=== PATIENT | female | born 1940 | race African-American/Black ===

== ENCOUNTER → 2017-01-18 | Outpatient (CLI) | payer BC ==
[2015-03-29 14:57] VITALS: BP 130/70
[~2017-01-18] MED LIST: ASPI325T8 PO; CARV12.52 PO; CELE400C PO; CRESTOR20 MG PO; ESTR1TAB15 PO; FERR-26 PO; LOSA50TA6 PO; NIFE60TA10 PO; OMEP40CA5 PO; SIMV20TA3 PO; TRIA1TAB5 PO; VALS160T3 PO
[2017-01-18 08:35] LABS: BILIRUBIN,URINE NEGATIVE (NEG); GLUCOSE,URINE NEGATIVE (NEG); NITRITE,URINE NEGATIVE (NEG); PH,URINE 5.5; PROTEIN,URINE 100 mg/dL (NEG-TRACE); UROBILINOGEN,URINE 0.2 mg/dL (0.2 mg/dL)
[2017-01-18 08:55] LABS: BACTERIA,URINE FEW /HPF (0-FEW); RBC,URINE RARE /HPF (0-2); SQUAMOUS EPITHELIAL CELL,UR FEW /LPF
[2017-01-18 09:05] LABS: PROTHROMBIN TIME PATIENT 12.4 SEC (11.7-14.0)
--- NOTE | 2017-01-18 12:59 | EKG ---
[address] [place] [address] Test Date: 2017-01-18 Test Time: 12:05:15 Pat Name: SINDI HEWITT Department: Room: Gender: F Collection Officer: ELEONORA : 1940 Requested By: LAINA KEENAN Order Number: [id number] Reading MD: Manuel Casas Measurements Intervals Superior Rate: 58 P: 36 DC: 192 QRS: 1 QRSD: 82 T: 45 QT: 418 QTc: 414 Interpretive Statements SINUS RHYTHM QRS(T) CONTOUR ABNORMALITY CONSISTENT WITH INFERIOR INFARCT PROBABLY OLD ABNORMAL ECG RI6.01 Compared to ECG 12/09/2011 12:13:40 Myocardial infarct finding now present Atrial abnormality no longer present Inferior Q waves no longer present Q waves no longer present Electronically Signed On 01-18-2017 17:44:51 CDT by Manuel Casas
--- NOTE | 2017-01-18 13:13 | RAD ---
Chest radiograph 2 views 01/18/2017 Indication: Preoperative evaluation for joint replacement. Hypertension. Comparison: 03/04/2015 chest radiograph Findings: Cardiac and mediastinal silhouettes are within normal limits. No pleural effusion, pneumothorax or focal consolidation. Right upper quadrant cholecystectomy clips. Impression: No acute cardiopulmonary abnormality.
== END | disposition home or self-care (01) ==
LOC: SURGPAT 12:45
PROVIDERS: ATTEND Orthopaedic Surgery
DX: Z01.818 Encounter for other preprocedural examination (principal); M17.11 Unilateral primary osteoarthritis, right knee; I10 Essential (primary) hypertension; I21.3 ST elevation (STEMI) myocardial infarction of unspecified site; Z96.651 Presence of right artificial knee joint; Z90.49 Acquired absence of other specified parts of digestive tract
CPT/HCPCS: 36415; 71020; 81001; 85610; 85651; 85730; 87086; 87641; 93005

== ENCOUNTER 2017-02-09 05:34 | Inpatient (IN) | payer BC ==
--- NOTE | 2017-02-08 13:38 | PDOC1 ---
History and Physical Date of Admission Date of Admission DATE: 02/09/17 Identification/Chief Complaint Chief Complaint right knee pain Problems: Source Source: Chart review History of Present Illness History of Present Illness The patient is a 76 year old female who presents today with right knee pain. The pain is located primarily medially and is worsened by walking and standing for long periods of time. She had a left total knee arthroplasty on 03/26/15, which is doing well. Past Medical History Cardiovascular: HTN Past Surgical History Past Surgical History: Total knee replacement (left 03/26/15) Family History Family History: Cancer, Diabetes, Heart Disease (Rheumatoid arthritis ) Social History Smoke: No ALCOHOL: none Drugs: None Current Medications Current Medications Active Scripts Active Reported Ferrous Sulfate 325 Mg Tablet 325 Mg PO Carvedilol 12.5 Mg Tablet 1 Tab PO BID Diovan (Valsartan) 160 Mg Tablet 160 Mg PO DAILY Aspirin 325 Mg Tablet 325 Mg PO DAILY Omeprazole 40 Mg Capsule.dr 40 Mg PO DAILY Triamterene-Hctz 75-50 Mg Tab (Triamterene/Hydrochlorothiazid) 1 Each Tablet 1 Tab PO DAILY Nifedipine Er (Nifedipine) 60 Mg Tablet.er 90 Mg PO DAILY Allergies Allergies: Coded Allergies: No Known Drug Allergies (Unverified , 03/29/15) Physical Exam General: Alert, Oriented X3, Cooperative, No acute distress HEENT: Atraumatic, EOMI Lungs: Normal air movement Heart: RRR Abdomen: Soft Extremities: No clubbing, No cyanosis, Normal pulses, Other (LEFT KNEE: shows normal alignment, no masses and no effusion. No tenderness to palpation. Range of motion is 0-120 degrees, with typical total knee crepitus but no pain at the extremes of motion. The knee is stable to varus and valgus stress without subluxation or laxity. Muscle strength is normal (5/5) for quadriceps and hamstrings, and muscle tone is normal. The extensor mechanism is intact. The skin shows a well-healed midline scar from total knee arthroplasty. No drainage lesions or ulcers. Light touch sensation is decreased along the lateral calf beyond area of usual numbness after arthroplasty incision. Few varicose veins. Actinic keratosis. Dorsalis pedis pulse is intact and capillary refill is normalRIGHT KNEE: mildly antalgic gait. There is valgus alignment. No masses. Trace effusion. Tenderness on the medial and lateral joint lines. Range of motion is 0-105 degrees. There is crepitus with range of motion, and pain at the extremes of motion. The knee is stable to varus and valgus stress without subluxation or laxity. Muscle strength is normal (5/5) for quadriceps and hamstrings, and muscle tone is normal. The skin is normal with no scars, rashes , lesions or ulcers. Light touch sensation is intact. Few varicose veins. Actinic keratosis. Dorsalis pedis pulse is intact and capillary refill is normal. ) Skin: No rashes, No breakdown, No significant lesion Neuro: Normal speech, Sensation intact Psych/Mental Status: Mental status NL, Mood NL Images Images IMAGING REPORT Joint survey, hips knees and ankles Clinical information: Preoperative for total knee arthroplasty Comparison: None. Findings Bones: The angle between the right hip-ankle mechanical axis and the femoral shaft is 5. The angle between the left hip-ankle mechanical axis and the femoral shaft is 5 . The mechanical axis crosses lateral to the center of the right knee indicating valgus alignment. The mechanical axis crosses in the center of the left knee indicating proper mechanical alignment. Joints: There is narrowing of the right knee joint laterally. The left knee joint has total knee arthroplasty in good position. The hips and ankles show minimal degenerative changes. Soft tissue: Normal. Impression: Valgus alignment of the right knee. Left total knee arthroplasty in good alignment. The difference between the mechanical axis and femoral shaft anatomic axis is 5 bilaterally. Dictated and Signed Using Voice Recognition Software Charles Masters MD VTE Prophylaxis Ordered VTE Prophylaxis Devices: Yes VTE Pharmacological Prophylaxi: Yes Assessment/Plan Assessment/Plan Primary osteoarthritis of right knee The right knee impairs her gait on a daily basis. She has been using a brace for the right knee. She has tried nonoperative treatment without success and would like to proceed with total knee arthroplasty. She denied metal allergies. She would like to wait until January due to family reunion in the summer. Risks and benefits were discussed and her questions regarding surgery were answered. TIERA CHANEY Feb 08, 2017 13:38
[~2017-02-09] VITALS: Ht 172.7 cm; Wt 87.1 kg
[2017-02-09] VITALS (9 sets, daily range): BP systolic 133–173; BP diastolic 65–82
[2017-02-09] MEDS ORDERED: CELECOXIB 200 MG CAPSULE. PO PRN (06:00)
[2017-02-09] MEDS ORDERED: HYDROcodone/APAP 7.5/325MG 1 TAB TABLET PO PRN (06:00)
[2017-02-09] MEDS ORDERED: MORPHINE SULFATE 5 MG, KETOROLAC TROMETHAMINE 30 MG, ROPIVacaine 0.5% PF 60 ML, EPINEPH... INT ART ONE ×5 (06:00)
[2017-02-09] MEDS ORDERED: TRANEXAMIC ACID 1,000 MG in IV NS 50ML -- 1ST BAG INJ ONE (06:00)
[2017-02-09] MEDS ORDERED: CELE200C PO (06:15)
[2017-02-09] MEDS ORDERED: ONDANSETRON PF 4 MG/2 ML VIAL. IV PRN ×2 (07:00)
[2017-02-09] MEDS ORDERED: MORPHINE SULFATE 2 MG/ML DISP.SYRIN. IV PRN ×2 (07:00)
[2017-02-09] MEDS ORDERED: HYDROmorphone 2 MG/ML VIAL IV PRN ×2 (07:00)
[2017-02-09] MEDS ORDERED: IV RINGERS,LACTATED 1000ML 1,000 ML IV SCH ×2 (07:00)
[2017-02-09] MEDS ORDERED: LIDOCAINE 1% 1 ML SYRINGE. ID PRN ×2 (07:00)
[2017-02-09] MEDS ORDERED: PROCHLORPERAZINE 10 MG/2 ML VIAL. IV PRN ×3 (07:00→09:30)
[2017-02-09] MEDS ORDERED: fentaNYL PF VIAL 100 MCG/2 ML VIAL IV PRN ×5 (07:00→09:30)
[2017-02-09] MEDS ORDERED: LIDOCAINE 2% PF Vial for OR 5 ML VIAL. ONE (07:03)
[2017-02-09] MEDS ORDERED: PROPOFOL 20 ML IV ONE (07:03)
[2017-02-09] MEDS ORDERED: FAMOTIDINE 20 MG/2 ML VIAL ONE (07:03)
[2017-02-09] MEDS ORDERED: DEXAMETHASONE SOD PHOS 20 MG/5 ML VIAL. ONE (07:03)
[2017-02-09] MEDS ORDERED: ONDANSETRON PF 4 MG/2 ML VIAL. ONE (07:03)
[2017-02-09] MEDS ORDERED: ROCURONIUM 100 MG/10 ML VIAL. ONE ×2 (07:05→07:06)
[2017-02-09] MEDS ORDERED: MIDAZOLAM HCL/PF 2 MG/2 ML VIAL. ONE (07:05)
[2017-02-09] MEDS ORDERED: fentaNYL PF VIAL 100 MCG/2 ML VIAL ONE ×3 (07:05→08:45)
[2017-02-09] MEDS ORDERED: TOBRAMYCIN POWDER 1.2 GM VIAL. ONE (07:30)
[2017-02-09] MEDS ORDERED: VANCOMYCIN 1 GM VIAL. ONE (07:30)
[2017-02-09] MEDS ORDERED: GLYCOPYRROLATE 1 MG/5 ML VIAL. ONE (08:26)
[2017-02-09] MEDS ORDERED: NEOSTIGMINE METHYLSULFATE 5 MG/5 ML SYRINGE. ONE (08:26)
[2017-02-09] MEDS ORDERED: SEVOFLURANE 61 TO 120 MINUTES. IH ONE (09:04)
--- NOTE | 2017-02-09 09:22 | PDOC4 ---
Operative Note Operative Note Date of Procedure: February 09, 2017 Pre-Op Diagnosis: Osteoarthritis right knee Post-Op Diagnosis: Osteoarthritis right knee Procedure: right total knee arthroplasty Surgeon: Laina Masters MD Flumer: Maribeth Lux PA-C Anesthesia: General EBL: 100 mL Specimens Obtained: right knee bone and soft tissue Complications: none Implant Company: [employer] Drains: Hemovac plus pain catheter Tourniquet time: 50 Minutes Tourniquet Pressure: 300 mm Hg Indications for Procedure: Arthritis pain unrelieved by nonoperative management. Findings: Severe osteoarthritis with bone on bone contact in all three compartments, but most severe laterally Implants used: Size 3 right bicruciate stabilized Journey II BCS cobalt chrome femoral component, size 4 right Journey nonporous tibial baseplate, size 3-4 9 mm right Journey II BCS XLPE articular insert, 32 mm oval Yanet II resurfacing patellar component Procedure in Detail: The patient was identified in the preoperative holding area, and the correct right lower extremity was marked by me. The patient was taken to the operating room where the patient was anesthetized by the Department of Anesthesia. Preoperative antibiotics were given intravenously. Tranexamic acid 1 g was given intravenously for intraoperative hemostasis. A "time-out" procedure was performed. The patient was positioned supine on the operative table with a tourniquet on the upper right thigh. The right lower limb was thoroughly prepped and draped in sterile fashion. An impervious stockinet and adhesive drape were used such that the skin was entirely covered. An Hyatt leg aponte was used. The operating team wore personal exhaust-ventilated hoods. The tourniquet was inflated to 300 mm Hg. A midline skin incision was made with a scalpel using the patella and tibial tubercle as landmarks. Electrocautery was used for hemostasis. My animal assistant used rake retractors. A medial parapatellar arthrotomy incision was used with extension into the distal quadriceps tendon. The patella was retracted laterally and Hohmann retractors were now used by my animal assistant. Excess synovium, the menisci, and the cruciate ligaments were resected sharply. The patella was assessed and excess synovium and osteophytes around the patellar articulation were removed. The patella was measured with a caliper, cut freehand with a saw using caliper measurements, sized, and then drilled for an oval three-pegged patella component. Periarticular injection was used in the suprapatellar pouch and distal quadriceps muscle. Whitesides's line was assessed on the femur. An intra-medullary 5 degree cutting guide was pinned to the femur, and a distal femoral cut was made with an oscillating saw. An additional 2 mm resection was used due to the deep femoral sulcus, and deficient condyle.My animal assistant held Hohmann retractors and an [place] retractor to protect the medial and lateral collateral ligaments, the patellar tendon, the skin and the other soft tissues. An anterior referencing guide was applied with external rotation of 3 to match Jade s line. A 5-in-1 Journey II cutting guide was then applied and pinned to the femur. The posterior, anterior, and all chamfer cuts were made with the oscillating saw. An extramedullary guide was pinned to the tibia and rotational alignment and the planned resection thickness assessed. An external alignment destiny was used to verify the planned cut in the varus-valgus plane and regarding posterior slope referencing the tibial tubercle, the tibial shaft, the ankle joint, and the second metatarsal. The upper tibia was cut made with an oscillating saw. My animal assistant held Hohmann retractors and a posterior cruciate ligament retractor to protect the medial and lateral collateral ligaments, the patellar tendon, the skin, the peroneal nerve and the other soft tissues. The upper tibia was sized with a trial baseplate. The posterior compartment was cleared of osteophytes and loose bodies, and posterior capsule released. Dahlia-articular injection was used in the posterior compartment. The box cut for a posterior stabilized component was made. A preliminary reduction was performed with a trial femur, trial tibial baseplate and trial polyethylene. Soft-tissue balancing was now performed, and extension and rotation of the alignments was checked using a guide destiny in the tibial trial and a guide pin in the femur. No additional releases were required. The stability was assessed using different thicknesses of tibial articular surface to find satisfactory stability and good range of motion. The rotation of the tibial component was marked on the upper tibia. Final trial reduction was now performed verifying patella tracking and tibiofemoral stability and alignment. The tibia preparation was completed with a drill, saw, and fin punch at the previously noted rotation. The final implants were verified and opened. Outer gloves were changed by the operating team. The bone cuts were washed thoroughly with the [place] InterPulse device and dried. Two packages of Palacos bone cement were mixed in powdered form with 1 gm of Vancomycin and 1.2 g tobramycin, then vacuum-mixed with the monomer, and placed into a cement gun. The cut surfaces of the bone were thoroughly dried with Claros-tip suction and with laparotomy sponges for cement interdigitation. The final components were cemented into place. The knee was kept at full extension while the cement hardened, and excess cement was removed. No tranexamic acid was given at this point. A final periarticular injection was used for pain relief. The tourniquet was released, and electrocautery was used for hemostasis. A final check of [id number] and stability was made, and the polyethylene implant final size was chosen. The polyethylene implant was secured to the tibial baseplate, and the knee was reduced a final time. Thorough irrigation was used. Hemovac and pain catheter were used.The arthrotomy was closed with interrupted [id number] #1 PDS suture. The arthrotomy incision was then run with #1 STRATAFIX Symmetric PDS Plus Knotless suture. The subcutaneous tissues were closed with #2-0 Vicryl by my animal assistant. The skin was approximated with flaco by my animal assistant. A Prevena dressing was applied. Needle and sponge counts were correct. There were no apparent complications. LAINA MASTERS MD Feb 09, 2017 09:22
[2017-02-09] MEDS ORDERED: MORPHINE SULFATE 10 MG/ML VIAL. IV PRN (09:30)
[2017-02-09] MEDS ORDERED: ZOLPIDEM 5 MG TABLET. PO PRN (09:30)
[2017-02-09] MEDS ORDERED: ACETAMINOPHEN 325 MG TABLET. PO PRN (09:30)
[2017-02-09] MEDS ORDERED: CALCIUM CARBONATE 500 MG TAB.CHEW PO PRN (09:30)
[2017-02-09] MEDS ORDERED: oxyCODONE/APAP 5/325 1 TAB TABLET PO PRN (09:30)
[2017-02-09] MEDS ORDERED: MORPHINE SULFATE 4 MG/ML DISP.SYRIN. IV PRN ×3 (09:30)
[2017-02-09] MEDS ORDERED: diphenhydrAMINE 50 MG/ML VIAL IV PRN (09:30)
[2017-02-09] MEDS ORDERED: DEXTROSE 50% 25 GM / 50ML DISP.SYRIN. IV PRN (09:30)
[2017-02-09] MEDS ORDERED: traMADol 50 MG TABLET PO PRN ×2 (09:30)
[2017-02-09] MEDS ORDERED: PROCHLORPERAZINE 5 MG TABLET. PO PRN (09:30)
[2017-02-09] MEDS ORDERED: METOCLOPRAMIDE HCL 10 MG/2 ML VIAL. IV PRN (09:30)
[2017-02-09] MEDS ORDERED: 0.9 % SODIUM CHLORIDE 10 ML DISP.SYRIN. IV PRN (09:30)
[2017-02-09] MEDS: fentaNYL PF VIAL 100 MCG/2 ML VIAL IV PRN ×2 (09:39→10:03)
--- NOTE | 2017-02-09 10:19 | RAD ---
Exam performed: 2 views of the right knee. Indication: Right knee arthroplasty Date of Service: 02/09/17. No priors Two views right knee findings: There are postsurgical changes of total right knee arthroplasty with prosthesis in satisfactory position. There is expected subcutaneous edema and emphysema. There is a drainage catheter projecting anterosuperiorly. Impression: 1. Postsurgical changes of total right knee arthroplasty.
[2017-02-09] MEDS: FERROUS SULFATE 325 MG TABLET. PO SCH (17:32)
[2017-02-09] MEDS: CARVEDILOL 12.5 MG TABLET. PO SCH (17:33)
[2017-02-09] MEDS: IV DEXTROSE 5 %-0.45 % NACL 1,000 ML IV SCH ×2 (17:34→21:08)
[2017-02-09] MEDS: ASPIRIN ENTERIC COATED 325 MG TABLET.DR. PO SCH (21:08)
[2017-02-09] MEDS: CELECOXIB 200 MG CAPSULE. PO SCH (21:08)
--- NOTE | 2017-02-10 01:32 | ACF ---
Admission Forms Criteria PAIN MANAGEMENT GR Clinical Indications for Admission to Inpatient Care (Place 'X' for any and all applicable criteria): Hospital admission is needed for appropriate care of the patient because of 1 or more of the following are present (1)(2)(3)(4)(5): [X]I. Severe pain requiring acute inpatient management as indicated by 1 or more of the following (2)(5)(10): [X]a) Continuous or frequent (eg, every 2 to 4 hours) parenteral analgesics required [A] [ ]b) Necessity (ie, alternative approaches not effective) for analgesic regimen that can only be performed or initiated in inpatient setting [ ]II. Pain causing debilitation to the point of inability to function or be supported at any other level of care [ ]III. Severe side effects from pain medications as indicated by ANY ONE of the following (12)(13)(14)(15): [ ]a) Uncontrollable seizures [ ]b) Cardiac arrhythmias of immediate concern [ ]c) Dehydration that is severe or persistent [ ]d) Vomiting that is severe or persistent [ ]e) Altered mental status that is severe or persistent [ ]f) Obstipation with inadequate GI function to maintain nutrition The original [employer] content created by [employer] has been revised. The portions of the content which have been revised are identified through the use of italic text or in bold, and [employer] has neither reviewed nor approved the modified material. All other unmodified content is copyright [employer]. Please see references footnoted in the original [employer] edition 2016 Admission Criteria Met?: Yes ALLY HERRERA Feb 10, 2017 01:32
[2017-02-10 02:37] VITALS: BP 154/69
[2017-02-10] MEDS: IV DEXTROSE 5 %-0.45 % NACL 1,000 ML IV SCH (05:20)
[2017-02-10] MEDS ORDERED: MAGNESIUM HYDROXIDE 2,400 MG/30 ML ORAL.SUSP. PO PRN (06:00)
[2017-02-10 06:30] VITALS: BP 141/63
[2017-02-10] MEDS: PANTOPRAZOLE 40 MG TABLET.DR. PO SCH (06:36)
[2017-02-10 08:07] LABS: HEMATOCRIT 33.5 % (36.0-47.0); HEMOGLOBIN 11.1 g/dL (12.0-15.5)
[2017-02-10] MEDS: CELECOXIB 200 MG CAPSULE. PO SCH ×2 (08:41→21:03)
[2017-02-10] MEDS: ASPIRIN ENTERIC COATED 325 MG TABLET.DR. PO SCH ×2 (08:41→21:03)
[2017-02-10] MEDS: SENNOSIDES/DOCUSATE 8.6/50MG TABLET. PO SCH (08:41)
[2017-02-10] MEDS: FERROUS SULFATE 325 MG TABLET. PO SCH ×2 (08:41→17:11)
[2017-02-10] MEDS: MULTIVITAMIN with MINERAL TABLET. PO SCH (08:41)
[2017-02-10] MEDS: CARVEDILOL 12.5 MG TABLET. PO SCH ×2 (08:42→17:12)
[2017-02-10] MEDS: TRIAMTERENE/HCTZ 75/50MG TABLET. PO SCH (08:42)
[2017-02-10] MEDS: oxyCODONE/APAP 7.5/325 1 TAB TABLET PO PRN ×3 (08:45→16:08)
[2017-02-10] MEDS: LOSARTAN POTASSIUM 50 MG TABLET. PO SCH (08:47)
--- NOTE | 2017-02-10 10:06 | PDOC ---
PROGRESS NOTES Subjective Subjective No complaints. Pain is controlled. Objective Vital Signs Vital Signs Date Time Temp Pulse Resp B/P (MAP) Pulse Ox O2 Delivery O2 Flow Rate FiO2 02/10/17 08:47 71 141/63 02/10/17 06:30 98.4 18 96 Room Air 98.4 02/09/17 14:20 2.0 Physical Exam Postop dressing dry and intact. Hemovac and pain catheter in place. Good dorsiflexion and plantarflexion of the foot with no evidence of neurovascular injury. Calves are soft and nontender with negative Homans sign. Peripheral pulses and light touch sensation intact. Labs Laboratory Tests Test 02/10/17 07:50 Hemoglobin 11.1 g/dL (12.0-15.5) Hematocrit 33.5 % (36.0-47.0) Mean Corpuscular Hemoglobin Concent 33 g/dL (31-37) Laboratory Tests Test 02/10/17 07:50 Hemoglobin 11.1 g/dL (12.0-15.5) Hematocrit 33.5 % (36.0-47.0) Mean Corpuscular Hemoglobin Concent 33 g/dL (31-37) Imaging Postoperative x-rays reviewed by me, showing satisfactory total knee replacement , with no apparent complications. Assessment Assessment POD #1 right TKA Problems: Plan Plan of Care Continue POC including DVT prophylaxis and physical therapy. TIERA CHANEY Feb 10, 2017 10:06
[2017-02-10] MEDS ORDERED: BISACODYL 10 MG SUPP.RECT. PR PRN (16:00)
[2017-02-10 18:06] VITALS: BP 142/73
[2017-02-10] MEDS: HYDROcodone/APAP 10/325 1 TAB TABLET PO PRN (21:04)
[2017-02-11] MEDS: HYDROcodone/APAP 10/325 1 TAB TABLET PO PRN ×2 (03:29→07:50)
[2017-02-11 04:40] LABS: HEMATOCRIT 30.1 % (36.0-47.0); HEMOGLOBIN 10.1 g/dL (12.0-15.5)
[2017-02-11 05:30] VITALS: BP 138/61
[2017-02-11] MEDS: PANTOPRAZOLE 40 MG TABLET.DR. PO SCH (07:50)
[2017-02-11] MEDS: SENNOSIDES/DOCUSATE 8.6/50MG TABLET. PO SCH (07:52)
[2017-02-11] MEDS: MULTIVITAMIN with MINERAL TABLET. PO SCH (07:52)
[2017-02-11] MEDS: FERROUS SULFATE 325 MG TABLET. PO SCH ×2 (07:52→15:52)
[2017-02-11] MEDS: CELECOXIB 200 MG CAPSULE. PO SCH ×2 (07:52→20:33)
[2017-02-11] MEDS: CARVEDILOL 12.5 MG TABLET. PO SCH ×2 (07:52→15:52)
[2017-02-11 07:54] VITALS: BP 129/68
[2017-02-11] MEDS: LOSARTAN POTASSIUM 50 MG TABLET. PO SCH (09:00)
[2017-02-11] MEDS: TRIAMTERENE/HCTZ 75/50MG TABLET. PO SCH (09:00)
[2017-02-11 11:36] VITALS: BP 126/63
[2017-02-11] MEDS: ASPIRIN ENTERIC COATED 325 MG TABLET.DR. PO SCH ×2 (11:36→11:51)
[2017-02-11] MEDS: HYDROcodone/APAP 7.5/325MG 1 TAB TABLET PO PRN ×2 (12:12→20:33)
--- NOTE | 2017-02-11 12:52 | PDOC ---
PROGRESS NOTES Subjective Subjective Pain controlled. No major complaints. Objective Vital Signs Vital Signs Date Time Temp Pulse Resp B/P (MAP) Pulse Ox O2 Delivery O2 Flow Rate FiO2 02/11/17 12:12 Room Air 02/11/17 11:36 87 16 126/63 (84) 02/11/17 05:30 98.5 92 98.5 02/09/17 14:20 2.0 Physical Exam Postop dressing and pain catheter have been removed. Spotty bloody drainage only. Calf soft and nontender. Good AROM of ankle. Minimal erythema/warmth. Possible valgus clinical alignment, although patient doesn't notice at this time. Labs Laboratory Tests Test 02/10/17 07:50 02/11/17 04:00 Hemoglobin 11.1 g/dL (12.0-15.5) 10.1 g/dL (12.0-15.5) Hematocrit 33.5 % (36.0-47.0) 30.1 % (36.0-47.0) Mean Corpuscular Hemoglobin Concent 33 g/dL (31-37) 34 g/dL (31-37) Laboratory Tests Test 02/11/17 04:00 Hemoglobin 10.1 g/dL (12.0-15.5) Hematocrit 30.1 % (36.0-47.0) Mean Corpuscular Hemoglobin Concent 34 g/dL (31-37) Imaging Postoperative x-rays and report reviewed by me and show possible valgus alignment 11 degrees rather than 5 degrees of the femoral component, and no other apparent complications. Assessment Assessment POD #2 TKA Problems: Plan Plan of Care I will discuss the x-ray findings with her. Doubtful that revision at this time would be indicated. Will follow clinically. Continue POC. Discharge planning for tomorrow. Aspirin 325 mg po BID and mobilization for DVT prophylaxis. LAINA KEENAN MD Feb 11, 2017 12:52
--- NOTE | 2017-02-11 16:42 | PATHOLOGY ---
PATHOLOGY REPORT * * * * * * * * FINAL DIAGNOSIS: Segments of bone and soft tissue, right total knee arthroplasty: - Advanced degenerative arthritis. (JPM:; 02/11/2017) REPORT ELECTRONICALLY SIGNED BY: Raul Cody M.D. DATE/TIME: 02/11/2017 16:41 * * * * * * * * GROSS PATHOLOGY: Received in formalin labeled "Eri May right knee tissue," are multiple segments of bone, including tibial plateau, measuring 13.8 x 11.2 x 2.8 cm in aggregate dimensions admixed with soft tissue; meniscus is present. The specimen shows focal eburnation of the articular surfaces. [employer] sections of bone and soft tissue are submitted in cassette A1, following decalcification. (DAC; 02/10/2017) INITIAL CPT CODE(S): A; 86674, 30388 Professional services [place] [address] Technical services performed by [facility] at [address] [place] [address], [place] [address]. SPECIMEN(S) RECEIVED: A.Right knee tissue CLINICAL HISTORY: Right knee OA PATIENT: ERI MAY /AGE: 1 1940 (Age: 76) PATIENT #: [id number] ALT CASE #: SPECIMEN COLLECTION DATE: 02/09/2017 SPECIMEN RECEIVED DATE: 02/09/2017 [facility] - [address] [place] [address] - PHONE: [phone] * * * END OF REPORT * * *
[2017-02-11 18:20] VITALS: BP 166/71
[2017-02-12 03:00] VITALS: BP 145/68
[2017-02-12] MEDS: HYDROcodone/APAP 7.5/325MG 1 TAB TABLET PO PRN ×3 (04:57→15:08)
[2017-02-12 05:04] LABS: HEMATOCRIT 26.6 % (36.0-47.0); HEMOGLOBIN 9.1 g/dL (12.0-15.5)
[2017-02-12 06:00] VITALS: BP 136/66
[2017-02-12] MEDS: PANTOPRAZOLE 40 MG TABLET.DR. PO SCH (06:37)
[2017-02-12] MEDS: SENNOSIDES/DOCUSATE 8.6/50MG TABLET. PO SCH (08:11)
[2017-02-12] MEDS: ASPIRIN ENTERIC COATED 325 MG TABLET.DR. PO SCH (08:12)
[2017-02-12] MEDS: FERROUS SULFATE 325 MG TABLET. PO SCH (08:12)
[2017-02-12] MEDS: CELECOXIB 200 MG CAPSULE. PO SCH (08:12)
[2017-02-12] MEDS: MULTIVITAMIN with MINERAL TABLET. PO SCH (08:12)
[2017-02-12] MEDS: CARVEDILOL 12.5 MG TABLET. PO SCH (08:13)
[2017-02-12] MEDS ORDERED: FERR-26 PO (10:13)
[2017-02-12] MEDS ORDERED: CELE200C PO (10:13)
[2017-02-12] MEDS ORDERED: ASPI325T11 PO (10:13)
[2017-02-12 12:46] VITALS: BP 161/69
[2017-02-12 14:30] VITALS: BP 168/72
== END 2017-02-12 15:30 | disposition home or self-care (01) | DRG 470 ==
LOC: OPSVCIP 05:34 → 4 SOUTHEST 10:33
PROVIDERS: ADMIT Orthopaedic Surgery; ATTEND Orthopaedic Surgery
PROC: 3E0U33Z Introduction of Anti-inflammatory into Joints, Percutaneous Approach (ICD-10-PCS; 2017-02-09)
PROC: 0SRC0J9 Replacement of Right Knee Joint with Synthetic Substitute, Cemented, Open Approach (ICD-10-PCS; principal; 2017-02-09 07:10)
DX: M17.11 Unilateral primary osteoarthritis, right knee (principal); I10 Essential (primary) hypertension; Z83.3 Family history of diabetes mellitus; Z96.652 Presence of left artificial knee joint; Z80.9 Family history of malignant neoplasm, unspecified; Z82.61 Family history of arthritis; Z82.49 Family history of ischemic heart disease and other diseases of the circulatory system
CPT/HCPCS: 36415; 73560; 85014; 85018; 86850; 86900; 86901; 88305; 88311; J0171; J0690; J0780; J1100; J1885; J2250; J2270; J2405; J2704; J2710; J2795; J3010; J3260; J3370; J3490; J7030; J7120; Q0164; S0028; 97116; 97150; 97530; C1769; J2001

== ENCOUNTER → 2017-02-23 | Outpatient (CLI) | payer BC ==
[2017-02-12 14:30] VITALS: BP 168/72
[~2017-02-23] MED LIST changes: +ASPI325T11 PO; +CELE200C PO
== END | disposition home or self-care (01) ==
LOC: PMGWOUND 08:55
PROVIDERS: ATTEND Emergency Medicine Undersea and Hyperbaric Medicine
DX: S80.221D Blister (nonthermal), right knee, subsequent encounter (principal); I10 Essential (primary) hypertension; M17.11 Unilateral primary osteoarthritis, right knee; I21.3 ST elevation (STEMI) myocardial infarction of unspecified site; Z90.710 Acquired absence of both cervix and uterus; X58.XXXD Exposure to other specified factors, subsequent encounter
CPT/HCPCS: 97597

== ENCOUNTER → 2017-03-02 | Outpatient (CLI) | payer BC ==
[2017-02-12 14:30] VITALS: BP 168/72
== END | disposition home or self-care (01) ==
LOC: PMGWOUND 08:45
PROVIDERS: ATTEND Emergency Medicine Undersea and Hyperbaric Medicine
DX: T81.89XD Other complications of procedures, not elsewhere classified, subsequent encounter (principal); I10 Essential (primary) hypertension; Z90.710 Acquired absence of both cervix and uterus; Y83.8 Other surgical procedures as the cause of abnormal reaction of the patient, or of later complication, without mention of misadventure at the time of the procedure
CPT/HCPCS: 99214

== ENCOUNTER → 2017-03-09 | Outpatient (CLI) | payer BC ==
[2017-02-12 14:30] VITALS: BP 168/72
== END | disposition home or self-care (01) ==
LOC: PMGWOUND 08:44
PROVIDERS: ATTEND Emergency Medicine Undersea and Hyperbaric Medicine
DX: T81.89XD Other complications of procedures, not elsewhere classified, subsequent encounter (principal); I10 Essential (primary) hypertension; I21.3 ST elevation (STEMI) myocardial infarction of unspecified site; M17.11 Unilateral primary osteoarthritis, right knee; Z90.49 Acquired absence of other specified parts of digestive tract; Z90.710 Acquired absence of both cervix and uterus; Y83.8 Other surgical procedures as the cause of abnormal reaction of the patient, or of later complication, without mention of misadventure at the time of the procedure
CPT/HCPCS: 99212

== ENCOUNTER → 2017-03-16 | Outpatient (CLI) | payer BC | END | disposition home or self-care (01) | LOC: PMGWOUND 08:17 | PROVIDERS: ATTEND Emergency Medicine Undersea and Hyperbaric Medicine | DX: T81.89XD Other complications of procedures, not elsewhere classified, subsequent encounter (principal); I10 Essential (primary) hypertension; M19.90 Unspecified osteoarthritis, unspecified site; Z90.710 Acquired absence of both cervix and uterus; Y83.8 Other surgical procedures as the cause of abnormal reaction of the patient, or of later complication, without mention of misadventure at the time of the procedure | CPT/HCPCS: 99214 ==

== ENCOUNTER → 2017-03-23 | Outpatient (CLI) | payer BC ==
[~2017-03-23] MED LIST changes: -NIFE60TA10 PO; +NIFE60TA14 PO
== END | disposition home or self-care (01) ==
LOC: PMGWOUND 08:15
PROVIDERS: ATTEND Emergency Medicine Undersea and Hyperbaric Medicine
DX: T81.89XD Other complications of procedures, not elsewhere classified, subsequent encounter (principal); I10 Essential (primary) hypertension; M17.11 Unilateral primary osteoarthritis, right knee; I21.3 ST elevation (STEMI) myocardial infarction of unspecified site; Z90.49 Acquired absence of other specified parts of digestive tract; Z90.710 Acquired absence of both cervix and uterus; Y83.8 Other surgical procedures as the cause of abnormal reaction of the patient, or of later complication, without mention of misadventure at the time of the procedure
CPT/HCPCS: 97597

== ENCOUNTER → 2017-04-06 | Outpatient (CLI) | payer BC ==
[~2017-04-06] MED LIST changes: +NIFE60TA10 PO; -NIFE60TA14 PO
== END | disposition home or self-care (01) ==
LOC: PMGWOUND 08:18
PROVIDERS: ATTEND Emergency Medicine Undersea and Hyperbaric Medicine
DX: S80.221D Blister (nonthermal), right knee, subsequent encounter (principal); I10 Essential (primary) hypertension; M19.90 Unspecified osteoarthritis, unspecified site; Z90.710 Acquired absence of both cervix and uterus; X58.XXXD Exposure to other specified factors, subsequent encounter
CPT/HCPCS: 97597

== ENCOUNTER → 2017-04-20 | Outpatient (CLI) | payer BC | END | disposition home or self-care (01) | LOC: PMGWOUND 08:25 | PROVIDERS: ATTEND Emergency Medicine Undersea and Hyperbaric Medicine | DX: T81.89XD Other complications of procedures, not elsewhere classified, subsequent encounter (principal); I10 Essential (primary) hypertension; I21.3 ST elevation (STEMI) myocardial infarction of unspecified site; M17.11 Unilateral primary osteoarthritis, right knee; Z90.49 Acquired absence of other specified parts of digestive tract; Z90.710 Acquired absence of both cervix and uterus; Y83.8 Other surgical procedures as the cause of abnormal reaction of the patient, or of later complication, without mention of misadventure at the time of the procedure | CPT/HCPCS: 97597 ==

== ENCOUNTER → 2017-05-04 | Outpatient (CLI) | payer BC ==
[~2017-05-04] MED LIST changes: -NIFE60TA10 PO; +NIFE60TA14 PO
== END | disposition home or self-care (01) ==
LOC: PMGWOUND 08:27
PROVIDERS: ATTEND Emergency Medicine Undersea and Hyperbaric Medicine
DX: S80.221D Blister (nonthermal), right knee, subsequent encounter (principal); I10 Essential (primary) hypertension; M19.90 Unspecified osteoarthritis, unspecified site; Z90.710 Acquired absence of both cervix and uterus; X58.XXXD Exposure to other specified factors, subsequent encounter
CPT/HCPCS: 99214

== ENCOUNTER → 2017-05-18 | Outpatient (CLI) | payer BC | END | disposition home or self-care (01) | LOC: PMGWOUND 08:26 | PROVIDERS: ATTEND Emergency Medicine Undersea and Hyperbaric Medicine | DX: T81.89XD Other complications of procedures, not elsewhere classified, subsequent encounter (principal); I10 Essential (primary) hypertension; M17.11 Unilateral primary osteoarthritis, right knee; I21.3 ST elevation (STEMI) myocardial infarction of unspecified site; Z90.49 Acquired absence of other specified parts of digestive tract; Z90.710 Acquired absence of both cervix and uterus; Y83.8 Other surgical procedures as the cause of abnormal reaction of the patient, or of later complication, without mention of misadventure at the time of the procedure | CPT/HCPCS: 99213 ==

== ENCOUNTER 2018-04-17 14:29 | Inpatient (IN) | payer OTHER ==
[~2018-04-17] VITALS: Ht 167.6 cm; Wt 82.2 kg
[~2018-04-17 14:29] MED LIST changes: -FERR-26 PO; +FERR325T14 PO; -LOSA50TA6 PO; +LOSA50TA7 PO
--- NOTE | 2018-04-17 14:44 | PHYS DOC ---
Past Medical History Past Medical History: Anemia, GERD, Hypertension, Renal Disease Alcohol Use: None Drug Use: None Adult General Chief Complaint Chief Complaint: CHEST PAIN HPI HPI 77-year-old female presents to ER via POV for complaints of ongoing dull right- sided chest/rt upper extremity pain which started yesterday. Patient reports yesterday afternoon she developed discomfort in her right arm that radiated into her right chest. Patient reports pain subsides at rest however with any movement or sitting up patient reports pain starts back up. She reports she took 81mg aspirin this morning. Patient denies any shortness of air, abdominal pain, nausea or vomiting, or dizziness. Patient reports she has had regular appetite denying any nausea or vomiting. Patient reports bowel movements have been regular denying any dark tarry or bloody stools. She denies any swelling in extremities. Patient denies injury to right upper extremity or recent falls. She denies any recent travel. Patient denies being a smoker. Review of Systems Review of Systems Constitutional: Denies fever or chills and denies fatigue or generalized weakness Eyes: Denies change in visual acuity, redness, or eye pain [] HENT: Denies nasal congestion or sore throat [] Respiratory: Denies cough or shortness of breath [] Cardiovascular: Rt side dull CP-as radiation into right arm GI: Denies abdominal pain, nausea, vomiting, bloody stools or diarrhea [] : Denies dysuria or hematuria [] Musculoskeletal: Denies back/neck pain or joint pain [] Integument: Denies rash, swelling or skin lesions [] Neurologic: Denies headache, focal weakness or sensory changes. Denies dizziness or lightheadedness All other systems were reviewed and found to be within normal limits, except as documented in this note. Current Medications Current Medications Current Medications Medications (Trade) Dose Ordered Sig/[place] Start Time Stop Time Status Last Admin Dose Admin Aspirin (Children'S Aspirin) 243 mg 1X ONCE 04/17/18 14:45 04/17/18 14:46 DC 04/17/18 14:51 243 MG Nitroglycerin (Nitrostat) 0.4 mg PRN Q5MIN PRN 04/17/18 15:30 04/17/18 15:49 0.4 MG Allergies Allergies Allergies Coded Allergies Type Severity Reaction Last Updated Verified No Known Drug Allergies 02/09/17 No Physical Exam Physical Exam Constitutional: Well developed, well nourished, no acute distress, non-toxic appearance. [] HENT: Normocephalic, atraumatic, bilateral ears normal, oropharynx moist, no oral exudates, nose normal. [] Eyes: Pupils equal, conjunctiva normal, no discharge. [] Neck: Normal range of motion, no tenderness, supple, no stridor. [] Cardiovascular:Heart rate regular rhythm, no murmur [] Lungs & Thorax: Bilateral breath sounds clear to auscultation. Resp. equal/ nonlabored Abdomen: Bowel sounds normal, soft, no tenderness, no masses, no pulsatile masses. [] Skin: Warm, dry, no erythema, no rash. [] Back: No tenderness, no CVA tenderness. [] Extremities: No tenderness, no cyanosis, no clubbing, ROM intact, no edema. [] Neurologic: Alert and oriented X 3, normal motor function, normal sensory function, no focal deficits noted. [] Psychologic: Affect normal, judgement normal, mood normal. [] Current Patient Data Vital Signs Vital Signs Date Time Temp Pulse Resp B/P (MAP) Pulse Ox O2 Delivery O2 Flow Rate FiO2 04/17/18 15:08 80 188/83 (118) 97 Room Air 04/17/18 14:31 98.6 20 98.6 Lab Values Laboratory Tests Test 04/17/18 14:39 White Blood Count 4.6 x10^3/uL (4.0-11.0) Red Blood Count 3.60 x10^6/uL (3.50-5.40) Hemoglobin 10.6 g/dL (12.0-15.5) L Hematocrit 31.0 % (36.0-47.0) L Mean Corpuscular Volume 86 fL (79-100) Mean Corpuscular Hemoglobin 29 pg (25-35) Mean Corpuscular Hemoglobin Concent 34 g/dL (31-37) Red Cell Distribution Width 14.2 % (11.5-14.5) Platelet Count 222 x10^3/uL (140-400) Neutrophils (%) (Auto) 55 % (31-73) Lymphocytes (%) (Auto) 31 % (24-48) Monocytes (%) (Auto) 7 % (0-9) Eosinophils (%) (Auto) 5 % (0-3) H Basophils (%) (Auto) 2 % (0-3) Neutrophils # (Auto) 2.5 x10^3uL (1.8-7.7) Lymphocytes # (Auto) 1.4 x10^3/uL (1.0-4.8) Monocytes # (Auto) 0.3 x10^3/uL (0.0-1.1) Eosinophils # (Auto) 0.2 x10^3/uL (0.0-0.7) Basophils # (Auto) 0.1 x10^3/uL (0.0-0.2) Sodium Level 139 mmol/L (136-145) Potassium Level 3.8 mmol/L (3.5-5.1) Chloride Level 104 mmol/L (98-107) Carbon Dioxide Level 23 mmol/L (21-32) Anion Gap 12 (6-14) Blood Urea Nitrogen 46 mg/dL (7-20) H Creatinine 3.8 mg/dL (0.6-1.0) H Estimated GFR (Cockcroft-Gault) 14.0 BUN/Creatinine Ratio 12 (6-20) Glucose Level 137 mg/dL (70-99) H Calcium Level 8.9 mg/dL (8.5-10.1) Magnesium Level 2.1 mg/dL (1.8-2.4) Total Bilirubin 0.3 mg/dL (0.2-1.0) Aspartate Amino Transferase (AST) 23 U/L (15-37) Alanine Aminotransferase (ALT) 26 U/L (14-59) Alkaline Phosphatase 146 U/L (46-116) H Troponin I Quantitative 0.040 ng/mL (0.000-0.055) Total Protein 7.0 g/dL (6.4-8.2) Albumin 3.3 g/dL (3.4-5.0) L Albumin/Globulin Ratio 0.9 (1.0-1.7) L Triglycerides Level 77 mg/dL (0-150) Cholesterol Level 199 mg/dL (0-200) LDL Cholesterol, Calculated 108 mg/dL (0-100) H VLDL Cholesterol, Calculated 15 mg/dL (0-40) Non-HDL Cholesterol Calculated 123 mg/dL (0-129) HDL Cholesterol 76 mg/dL (40-60) H Cholesterol/HDL Ratio 2.6 Laboratory Tests 10/28/18 14:39 Laboratory Tests 04/17/18 14:39 EKG EKG EKG obtained 04/17/18 at [address] Pisano Sinus rhythm Rate 79 No acute STEMI Radiology/Procedures Radiology/Procedures PROCEDURE: CHEST AP ONLY Examination: CHEST AP ONLY History: RIGHT SIDED CHEST PAIN, HX HYPERTENSION. Comparison/Correlation: 01/18/2017 two-view chest x-ray exam Findings: Portable upright frontal view chest was obtained. Heart size and pulmonary vasculature are normal. No infiltrate or pleural effusion. Bony structures are unremarkable. No pneumothorax. Impression: No active disease. Electronically signed by: Kb Cheatham MD (04/17/2018 3:11 PM) [facility] DICTATED and SIGNED BY: KB CHEATHAM MD DATE: 04/17/18 1510 Course & Med Decision Making Course & Med Decision Making Pertinent Labs and Imaging studies reviewed. (See chart for details) 1525: Discussed test results with pt and her husb. EKG with no acute ST elevation/STEMI and troponin 0.040; BUN/Cr 46/3.8- pt reports she has kidney issues uncertain of past Cr level. Pt was given 243mg aspirin while in ER as she had taken 81mg earlier today. Dr. Ribeiro, hospitalist was in ER and so discussed pt's case and admission plan. With pt having ongoing CP Nitro SL ordered. Pt's BP has improved to 188/83 HR 77. Pt remains nontoxic in appearance. Pt is agreeable with admission plan as discussed. Repeat EKG will be obtained as initial had artifact. Repeat EKG with no ischemic changes- sinus rhythm with no acute STEMI. Pt's case and plan of care was discussed with Dr. Pisano. Dannielle Disclaimer Dannielle Disclaimer This electronic medical record was generated, in whole or in part, using a voice recognition dictation system. Departure Departure Impression: Primary Impression: Chest pain Disposition: 09 ADMITTED INPATIENT Admitting Physician: Leticia Ribeiro Condition: STABLE Referrals: SUKH GUTIERREZ DO (PCP) MATT TAMEZ APRN Apr 17, 2018 14:44
[2018-04-17] MEDS ORDERED: ASPIRIN CHEWABLE 81 MG TABLET. PO ONE (14:45)
[2018-04-17 14:56] LABS: BASO # 0.1 x10^3/uL (0.0-0.2); BASO % 2 % (0-3); EOS # 0.2 x10^3/uL (0.0-0.7); EOS % 5 % (0-3); HEMOGLOBIN 10.6 g/dL (12.0-15.5); LYMPH # 1.4 x10^3/uL (1.0-4.8); LYMPH % 31 % (24-48); MEAN CORPUSCULAR HEMOGLOBIN 29 pg (25-35); MEAN CORPUSCULAR HGB CONC 34 g/dL (31-37); MEAN CORPUSCULAR VOLUME 86 fL (79-100); MONO # 0.3 x10^3/uL (0.0-1.1); MONO % 7 % (0-9); NEUT # 2.5 x10^3uL (1.8-7.7); NEUT % 55 % (31-73); PLATELET COUNT 222 x10^3/uL (140-400); RED CELL DISTRIBUTION WIDTH 14.2 % (11.5-14.5); WHITE BLOOD COUNT 4.6 x10^3/uL (4.0-11.0)
--- NOTE | 2018-04-17 14:57 | EKG ---
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
[2018-04-17 15:09] LABS: CALCIUM 8.9 mg/dL (8.5-10.1); CREATININE 3.8 mg/dL (0.6-1.0); POTASSIUM 3.8 mmol/L (3.5-5.1)
--- NOTE | 2018-04-17 15:14 | RAD ---
Examination: CHEST AP ONLY History: RIGHT SIDED CHEST PAIN, HX HYPERTENSION. Comparison/Correlation: 01/18/2017 two-view chest x-ray exam Findings: Portable upright frontal view chest was obtained. Heart size and pulmonary vasculature are normal. No infiltrate or pleural effusion. Bony structures are unremarkable. No pneumothorax. Impression: No active disease. Electronically signed by: Kb Blue MD (04/17/2018 3:11 PM) [facility]
[2018-04-17 15:15] LABS: ALBUMIN 3.3 g/dL (3.4-5.0); ALBUMIN/GLOBULIN RATIO 0.9 (1.0-1.7); MAGNESIUM 2.1 mg/dL (1.8-2.4); TOTAL BILIRUBIN 0.3 mg/dL (0.2-1.0)
[2018-04-17] MEDS: NITROGLYCERIN SUBLINGUAL 0.4 MG BOTTLE OF 25. SL PRN ×2 (15:44→15:49)
[2018-04-17] MEDS ORDERED: LACTULOSE 20 GM/30 ML SOLUTION. PO PRN (15:45)
[2018-04-17] MEDS ORDERED: ACETAMINOPHEN 325 MG TABLET. PO PRN (15:45)
[2018-04-17] MEDS ORDERED: HYDROcodone/APAP 5/325MG 1 TAB TABLET PO PRN (15:45)
[2018-04-17] MEDS ORDERED: IBUPROFEN 400 MG TABLET. PO PRN (15:45)
[2018-04-17] MEDS ORDERED: ONDANSETRON PF 4 MG/2 ML VIAL. IV PRN (15:45)
[2018-04-17] MEDS ORDERED: MORPHINE SULFATE 2 MG/ML VIAL. IV PRN (15:45)
[2018-04-17] MEDS ORDERED: LABETALOL 20 MG/4 ML DISP.SYRIN. IVP PRN (15:45)
[2018-04-17] MEDS ORDERED: CALCIUM CARBONATE 500 MG TAB.CHEW PO PRN (15:45)
[2018-04-17] MEDS ORDERED: MAGNESIUM HYDROXIDE 2,400 MG/30 ML ORAL.SUSP. PO PRN (15:45)
[2018-04-17] MEDS ORDERED: oxyCODONE IR 5 MG TABLET PO PRN (15:45)
[2018-04-17] MEDS ORDERED: ZOLPIDEM 5 MG TABLET. PO PRN (15:45)
[2018-04-17] MEDS ORDERED: BISACODYL 10 MG SUPP.RECT. PR PRN (15:45)
--- NOTE | 2018-04-17 15:49 | PDOC1 ---
History and Physical Date of Admission Date of Admission DATE: 04/17/18 TIME: 15:43 Identification/Chief Complaint Chief Complaint Right-sided chest pain and right arm pain today at rest Source Source: Caregiver, Chart review, Patient History of Present Illness History of Present Illness Pleasant 77-year-old -Turkmen female, known hypertensive on medications , known patient of Dr. Keller for hypertension, PCP Dr. Narayan. They have been managing BP regimen lately but blood pressure is still high 200s, and is compliant. She complains of right-sided chest pain, as pressure, right-sided arm involvement but no diaphoresis SOA, dizziness or presyncopal symptoms. HAppened at rest, lasts for mins, NO identifiable precipitating or alleviating factors, EKG and first set trop reassuring, Admitted because of high blood pressure and a creatinine of 3.8. She has CK D but unknown baseline creatinine or stage of CKD. She does see an outpatient broomcorn thresher of unrecalled name. We will admit and control blood pressure and have renal see. Did have a stress test or exercise treadmill done in the distant past which was negative. Past Medical History Cardiovascular: HTN Renal/: Chronic renal insuff Past Surgical History Past Surgical History: Total knee replacement Family History Family History: Cancer, Diabetes, Heart Disease Social History Smoke: No ALCOHOL: none Drugs: None Current Medications Current Medications Current Medications Aspirin (Children'S Aspirin) 243 mg 1X ONCE PO Last administered on at 14:51; Start 04/17/18 at 14:45; Stop 04/17/18 at 14:46; Status DC Nitroglycerin (Nitrostat) 0.4 mg PRN Q5MIN PRN SL CHEST PAIN; Start 04/17/18 at 15:30 Ondansetron HCl (Zofran) 4 mg PRN Q6HRS PRN IV NAUSEA/VOMITING; Start at 15:45; Status UNV Calcium Carbonate/ Glycine (Tums) 500 mg PRN Q3HRS PRN PO UPSET STOMACH; Start 04/17/18 at 15:45; Status UNV Zolpidem Tartrate (Ambien) 5 mg PRN QHS PRN PO INSOMNIA, MAY REPEAT IN 1HR; Start 04/17/18 at 15:45; Status UNV Oxycodone HCl (Roxicodone) 5 mg PRN Q3HRS PRN PO BREAKTHROUGH PAIN; Start at 15:45; Status UNV Morphine Sulfate (Morphine Sulfate) 2 mg PRN Q2HR PRN IV PAIN; Start 04/17/18 at 15:45; Status UNV Acetaminophen (Tylenol) 650 mg PRN Q6HRS PRN PO Headaches, Temp > 101.5F; Start 04/17/18 at 15:45; Status UNV Ibuprofen (Motrin) 400 mg PRN Q6HRS PRN PO MILD PAIN; Start 04/17/18 at 15:45 ; Status UNV Docusate Sodium (Colace) 100 mg BID PO ; Start 04/17/18 at 21:00; Status UNV Magnesium Hydroxide (Milk Of Magnesia) 2,400 mg PRN Q12HR PRN PO CONSTIPATION; Start 04/17/18 at 15:45; Status UNV Lactulose (Lactulose) 20 gm PRN Q12HR PRN PO CONSTIPATION; Start 04/17/18 at 15:45; Status UNV Bisacodyl (Dulcolax Supp) 10 mg PRN DAILY PRN DC CONSTIPATION; Start 04/17/18 at 15:45; Status UNV Labetalol HCl (Normodyne Iv Push) 10 mg PRN Q2HR PRN IVP HYPERTENSION, SEE COMMENTS; Start 04/17/18 at 15:45; Status UNV Active Scripts Active Reported Ferrous Sulfate 325 Mg Tablet 1 Tab PO BID last dose this am next dose tonight with supper Celebrex (Celecoxib) 200 Mg Capsule 1 Cap PO DAILY last dose this am next dose tomorrow morning Aspirin Ec (Aspirin) 325 Mg Tablet. 325 Mg PO BID 30 Days last dose this am next dose tonight Ferrous Sulfate 325 Mg Tablet 325 Mg PO last dose this am next dose tonight with supper Carvedilol 12.5 Mg Tablet 1 Tab PO BID last dose this am next dose this evening with supper Diovan (Valsartan) 160 Mg Tablet 160 Mg PO DAILY Meds not given this hospital admission. May resume home medications as approved by Physician. please check blood pressure prior to taking Omeprazole 40 Mg Capsule. 40 Mg PO DAILY last dose this am next dose this am Triamterene-Hctz 75-50 Mg Tab (Triamterene/Hydrochlorothiazid) 1 Each Tablet 1 Tab PO DAILY Meds not given this hospital admission. May resume home medications as approved by Physician. please check blood pressure prior to taking; pleae be sure blood pressure is greater than 140/78. please add 1 blood pressure pill at a time Nifedipine Er (Nifedipine) 60 Mg Tablet.er 90 Mg PO DAILY Meds not given this hospital admission. May resume home medications as approved by Physician. please check blood pressure prior to resuming; please make sure blood pressure is greater than 140/78 add 1 blood pressure pill one at a time Allergies Allergies: Coded Allergies: No Known Drug Allergies (Unverified , 02/09/17) ROS Review of System As per history of present illness, the rest of ROS 14 point negative Physical Exam General: Alert, Oriented X3, Cooperative, No acute distress HEENT: Atraumatic, PERRLA, EOMI Lungs: Clear to auscultation, Normal air movement Heart: S1S2, RRR, no thrills, no rubs, no gallops Cardiovascular: S1, S2 Breasts: Normal, Rt breast nml w/o mass, Lt breast nml w/o mass, Nipples normal Abdomen: Normal bowel sounds, Soft, No tenderness, No hepatosplenomegaly, No masses Rectal Exam: not examined PELVIC: Nml ext genitalia Extremities: No clubbing, No cyanosis, No edema, Normal pulses, No tenderness/ swelling Skin: No rashes, No breakdown, No significant lesion Neuro: Normal gait, Normal speech, Strength at 5/5 X4 ext, Normal tone, Sensation intact, Cranial nerves 3-12 NL, Reflexes 2+ Psych/Mental Status: Mental status NL Vitals Vitals Vital Signs Date Time Temp Pulse Resp B/P (MAP) Pulse Ox O2 Delivery O2 Flow Rate FiO2 04/17/18 14:31 98.6 82 20 238/101 (146) 99 Room Air 98.6 Labs Labs Laboratory Tests Test 04/17/18 14:39 White Blood Count 4.6 x10^3/uL (4.0-11.0) Red Blood Count 3.60 x10^6/uL (3.50-5.40) Hemoglobin 10.6 g/dL (12.0-15.5) Hematocrit 31.0 % (36.0-47.0) Mean Corpuscular Volume 86 fL (79-100) Mean Corpuscular Hemoglobin 29 pg (25-35) Mean Corpuscular Hemoglobin Concent 34 g/dL (31-37) Red Cell Distribution Width 14.2 % (11.5-14.5) Platelet Count 222 x10^3/uL (140-400) Neutrophils (%) (Auto) 55 % (31-73) Lymphocytes (%) (Auto) 31 % (24-48) Monocytes (%) (Auto) 7 % (0-9) Eosinophils (%) (Auto) 5 % (0-3) Basophils (%) (Auto) 2 % (0-3) Neutrophils # (Auto) 2.5 x10^3uL (1.8-7.7) Lymphocytes # (Auto) 1.4 x10^3/uL (1.0-4.8) Monocytes # (Auto) 0.3 x10^3/uL (0.0-1.1) Eosinophils # (Auto) 0.2 x10^3/uL (0.0-0.7) Basophils # (Auto) 0.1 x10^3/uL (0.0-0.2) Sodium Level 139 mmol/L (136-145) Potassium Level 3.8 mmol/L (3.5-5.1) Chloride Level 104 mmol/L (98-107) Carbon Dioxide Level 23 mmol/L (21-32) Anion Gap 12 (6-14) Blood Urea Nitrogen 46 mg/dL (7-20) Creatinine 3.8 mg/dL (0.6-1.0) Estimated GFR (Cockcroft-Gault) 14.0 BUN/Creatinine Ratio 12 (6-20) Glucose Level 137 mg/dL (70-99) Calcium Level 8.9 mg/dL (8.5-10.1) Magnesium Level 2.1 mg/dL (1.8-2.4) Total Bilirubin 0.3 mg/dL (0.2-1.0) Aspartate Amino Transf (AST/SGOT) 23 U/L (15-37) Alanine Aminotransferase (ALT/SGPT) 26 U/L (14-59) Alkaline Phosphatase 146 U/L (46-116) Troponin I Quantitative 0.040 ng/mL (0.000-0.055) Total Protein 7.0 g/dL (6.4-8.2) Albumin 3.3 g/dL (3.4-5.0) Albumin/Globulin Ratio 0.9 (1.0-1.7) Laboratory Tests Test 04/17/18 14:39 White Blood Count 4.6 x10^3/uL (4.0-11.0) Red Blood Count 3.60 x10^6/uL (3.50-5.40) Hemoglobin 10.6 g/dL (12.0-15.5) Hematocrit 31.0 % (36.0-47.0) Mean Corpuscular Volume 86 fL (79-100) Mean Corpuscular Hemoglobin 29 pg (25-35) Mean Corpuscular Hemoglobin Concent 34 g/dL (31-37) Red Cell Distribution Width 14.2 % (11.5-14.5) Platelet Count 222 x10^3/uL (140-400) Neutrophils (%) (Auto) 55 % (31-73) Lymphocytes (%) (Auto) 31 % (24-48) Monocytes (%) (Auto) 7 % (0-9) Eosinophils (%) (Auto) 5 % (0-3) Basophils (%) (Auto) 2 % (0-3) Neutrophils # (Auto) 2.5 x10^3uL (1.8-7.7) Lymphocytes # (Auto) 1.4 x10^3/uL (1.0-4.8) Monocytes # (Auto) 0.3 x10^3/uL (0.0-1.1) Eosinophils # (Auto) 0.2 x10^3/uL (0.0-0.7) Basophils # (Auto) 0.1 x10^3/uL (0.0-0.2) Sodium Level 139 mmol/L (136-145) Potassium Level 3.8 mmol/L (3.5-5.1) Chloride Level 104 mmol/L (98-107) Carbon Dioxide Level 23 mmol/L (21-32) Anion Gap 12 (6-14) Blood Urea Nitrogen 46 mg/dL (7-20) Creatinine 3.8 mg/dL (0.6-1.0) Estimated GFR (Cockcroft-Gault) 14.0 BUN/Creatinine Ratio 12 (6-20) Glucose Level 137 mg/dL (70-99) Calcium Level 8.9 mg/dL (8.5-10.1) Magnesium Level 2.1 mg/dL (1.8-2.4) Total Bilirubin 0.3 mg/dL (0.2-1.0) Aspartate Amino Transf (AST/SGOT) 23 U/L (15-37) Alanine Aminotransferase (ALT/SGPT) 26 U/L (14-59) Alkaline Phosphatase 146 U/L (46-116) Troponin I Quantitative 0.040 ng/mL (0.000-0.055) Total Protein 7.0 g/dL (6.4-8.2) Albumin 3.3 g/dL (3.4-5.0) Albumin/Globulin Ratio 0.9 (1.0-1.7) VTE Prophylaxis Ordered VTE Prophylaxis Devices: Yes VTE Pharmacological Prophylaxi: Yes Assessment/Plan Assessment/Plan Accelerated hypertension POA Right-sided chest chest pain with right arm involvement Dyslipidemia on statin NOn smoker YOGESH possibly on CKD PLAn: CVC admit, trend CE Consult cards Consult renal Avoid nephrotoxins Check UA MIght need to check renal sono HOme meds ok to cont except ARB NPO post MN in case cardiac tests Control BP Dw ER Seen at [facility] L[facility] MD Apr 17, 2018 15:49
[2018-04-17 16:09] LABS: CHOLESTEROL/HDL RATIO 2.6
[2018-04-17 16:30] VITALS: BP 199/82
--- NOTE | 2018-04-17 16:47 | RAD ---
Renal ultrasound complete. HISTORY: Elevated creatinine, assess renal echogenicity Ultrasound was used to evaluate the kidneys and bladder. Right kidney was 10.1 cm in length. There is no hydronephrosis. There is a 4.7 cm cyst at the upper pole the right kidney. Right kidney is echogenic suggesting chronic renal disease. Bladder was mildly distended without a focal lesion. Left kidney was 10.1 cm in length. Left kidney is also echogenic suggesting chronic renal disease. There is a 3.3 cm cyst at the upper left kidney. IMPRESSION: 1. Kidneys within normal limits in size. 2. Increased cortical echogenicity of the kidneys suggesting chronic renal disease. 3. Bilateral renal cysts. Electronically signed by: Sammy Wayne MD (04/17/2018 4:44 PM) [id number]
[2018-04-17] MEDS: CARVEDILOL 12.5 MG TABLET. PO SCH (18:45)
[2018-04-17] MEDS: amLODIPine BESYLATE 10 MG TABLET PO SCH (18:46)
[2018-04-17 19:00] VITALS: BP 182/89
[2018-04-17] MEDS ORDERED: DOCU100C28 PO (20:04)
[2018-04-17] MEDS ORDERED: CARV25TA2 PO (20:04)
[2018-04-17] MEDS ORDERED: ASPI-630 PO (20:04)
[2018-04-17] MEDS: FERROUS SULFATE 325 MG TABLET. PO SCH (21:00)
[2018-04-17] MEDS ORDERED: ASPIRIN ENTERIC COATED 325 MG TABLET.DR. PO SCH (21:00)
[2018-04-17] MEDS: DOCUSATE SODIUM 100 MG CAPSULE. PO SCH (22:02)
[2018-04-17] MEDS: hydrALAZINE 25 MG TABLET PO SCH (22:02)
[2018-04-17 23:00] VITALS: BP 148/71
[2018-04-18 03:00] VITALS: BP 132/68
[2018-04-18 05:04] LABS: CALCIUM 8.5 mg/dL (8.5-10.1); CREATININE 3.7 mg/dL (0.6-1.0); GFR 14.4; POTASSIUM 3.7 mmol/L (3.5-5.1)
--- NOTE | 2018-04-18 05:29 | EKG ---
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
[2018-04-18 07:19] VITALS: BP 158/63
[2018-04-18] MEDS ORDERED: PANTOPRAZOLE 40 MG TABLET.DR. PO SCH (07:30)
[2018-04-18] MEDS ORDERED: ASPIRIN CHEWABLE 81 MG TABLET. PO SCH (08:00)
[2018-04-18] MEDS ORDERED: NON FORMULARY ITEM (Nifedipine (Nifedipine Er) 90 MG) PO SCH (09:00)
[2018-04-18] MEDS: hydrALAZINE 25 MG TABLET PO SCH ×2 (09:00→14:06)
[2018-04-18] MEDS: FERROUS SULFATE 325 MG TABLET. PO SCH (09:00)
--- NOTE | 2018-04-18 09:44 | PDOC2 ---
CARDIAC CONSULT DATE OF CONSULT Date of Consult DATE: 04/18/18 TIME: 09:38 REASON FOR CONSULT Reason for Consult: Chest pain REFERRING PHYSICIAN Referring Physician: Dr. Mendez SOURCE Source: Chart review, Patient HISTORY OF PRESENT ILLNESS HISTORY OF PRESENT ILLNESS This is a 77 yo female who presented with complaints of right arm and right chest pain. Patient reports right arm began hurting on Wednesday. Used ice pack, which did not relieve pain. Took Tylenol, which improved pain. On Wednesday, pain returned. Also developed pain in her right chest. Describes as tightness. Associated with CARRILLO. Non-radiating. No associated dizziness, diaphoresis, palpitations, SOA, or nausea/vomiting. Denies any recent POLANCO or orthopnea. Came home from [facility] and pain persisted so she decided to go to the ED for further evaluation and treatment. Pain has not been recurrent since admission. Has history of CKD. Report kidney function has been worsening, recently. Has also been having intermittent hypertension recently. No history of CAD. PAST MEDICAL HISTORY Cardiovascular: HTN, Hyperlipidemia Pulmonary: No pertinent hx CENTRAL NERVOUS SYSTEM: Other (no pertinent hx) GI: GERD Heme/Onc: No pertinent hx Hepatobiliary: No pertinent hx Psych: No pertinent hx Musculoskeletal: Osteoarthritis Rheumatologic: No pertinent hx Infectious disease: No pertinent hx ENT: No pertinent hx Renal/: Chronic renal insuff Endocrine: No pertinent hx Dermatology: No pertinent hx PAST SURGICAL HISTORY Past Surgical History: Cholecystectomy, Total knee replacement (bilateral), Tonsillectomy, Hysterectomy, Other (right breast lumpectomy ) FAMILY HISTORY Family History: Coronary Artery Disease (brother ), High Cholestrol SOCIAL HISTORY Smoke: No ALCOHOL: none Drugs: None Lives: with Family CURRENT MEDICATIONS CURRENT MEDICATIONS Current Medications Medications (Trade) Dose Ordered Sig/[place] Route PRN Reason Start Time Stop Time Status Last Admin Dose Admin Aspirin (Children'S Aspirin) 243 mg 1X ONCE PO 04/17/18 14:45 04/17/18 14:46 DC 04/17/18 14:51 Nitroglycerin (Nitrostat) 0.4 mg PRN Q5MIN PRN SL CHEST PAIN 04/17/18 15:30 04/17/18 15:49 Docusate Sodium (Colace) 100 mg BID PO 04/17/18 21:00 04/17/18 22:02 Labetalol HCl (Normodyne Iv Push) 10 mg PRN Q2HR PRN IVP HYPERTENSION, SEE COMMENTS 04/17/18 15:45 04/17/18 22:06 Carvedilol (Coreg) 12.5 mg BIDWMEALS PO 04/17/18 17:00 04/17/18 18:45 Amlodipine Besylate (Norvasc) 10 mg DAILY PO 04/17/18 16:00 04/17/18 18:46 Hydralazine HCl (Apresoline) 25 mg TID PO 04/17/18 21:00 04/17/18 22:02 ALLERGIES ALLERGIES: Coded Allergies: No Known Drug Allergies (Unverified , 02/09/17) ROS Review of System 14 point ROS conducted with pertinent positives noted above in HPI. PHYSICAL EXAM General: Alert, Oriented X3, Cooperative, No acute distress HEENT: Atraumatic, Mucous membr. moist/pink Lungs: Clear to auscultation, Normal air movement Heart: Regular rate, Normal S1, Normal S2, No murmurs Abdomen: Soft, No tenderness Extremities: No edema, Normal pulses Skin: No breakdown, No significant lesion Neuro: Normal speech, Sensation intact Psych/Mental Status: Mental status NL, Mood NL MUSCULOSKELETAL: Osteoarthritic changes both hands VITALS VITALS Vital Signs Date Time Temp Pulse Resp B/P (MAP) Pulse Ox O2 Delivery O2 Flow Rate FiO2 04/18/18 07:19 98.6 80 16 158/63 (94) 96 Room Air 98.6 LABS Lab: Laboratory Tests Test 04/17/18 14:39 04/18/18 03:40 White Blood Count 4.6 x10^3/uL (4.0-11.0) Red Blood Count 3.60 x10^6/uL (3.50-5.40) Hemoglobin 10.6 g/dL (12.0-15.5) Hematocrit 31.0 % (36.0-47.0) Mean Corpuscular Volume 86 fL (79-100) Mean Corpuscular Hemoglobin 29 pg (25-35) Mean Corpuscular Hemoglobin Concent 34 g/dL (31-37) Red Cell Distribution Width 14.2 % (11.5-14.5) Platelet Count 222 x10^3/uL (140-400) Neutrophils (%) (Auto) 55 % (31-73) Lymphocytes (%) (Auto) 31 % (24-48) Monocytes (%) (Auto) 7 % (0-9) Eosinophils (%) (Auto) 5 % (0-3) Basophils (%) (Auto) 2 % (0-3) Neutrophils # (Auto) 2.5 x10^3uL (1.8-7.7) Lymphocytes # (Auto) 1.4 x10^3/uL (1.0-4.8) Monocytes # (Auto) 0.3 x10^3/uL (0.0-1.1) Eosinophils # (Auto) 0.2 x10^3/uL (0.0-0.7) Basophils # (Auto) 0.1 x10^3/uL (0.0-0.2) Sodium Level 139 mmol/L (136-145) 140 mmol/L (136-145) Potassium Level 3.8 mmol/L (3.5-5.1) 3.7 mmol/L (3.5-5.1) Chloride Level 104 mmol/L (98-107) 107 mmol/L (98-107) Carbon Dioxide Level 23 mmol/L (21-32) 22 mmol/L (21-32) Anion Gap 12 (6-14) 11 (6-14) Blood Urea Nitrogen 46 mg/dL (7-20) 51 mg/dL (7-20) Creatinine 3.8 mg/dL (0.6-1.0) 3.7 mg/dL (0.6-1.0) Estimated GFR (Cockcroft-Gault) 14.0 14.4 BUN/Creatinine Ratio 12 (6-20) Glucose Level 137 mg/dL (70-99) 98 mg/dL (70-99) Calcium Level 8.9 mg/dL (8.5-10.1) 8.5 mg/dL (8.5-10.1) Magnesium Level 2.1 mg/dL (1.8-2.4) Total Bilirubin 0.3 mg/dL (0.2-1.0) Aspartate Amino Transf (AST/SGOT) 23 U/L (15-37) Alanine Aminotransferase (ALT/SGPT) 26 U/L (14-59) Alkaline Phosphatase 146 U/L (46-116) Troponin I Quantitative 0.040 ng/mL (0.000-0.055) 0.042 ng/mL (0.000-0.055) Total Protein 7.0 g/dL (6.4-8.2) Albumin 3.3 g/dL (3.4-5.0) Albumin/Globulin Ratio 0.9 (1.0-1.7) Triglycerides Level 77 mg/dL (0-150) Cholesterol Level 199 mg/dL (0-200) LDL Cholesterol, Calculated 108 mg/dL (0-100) VLDL Cholesterol, Calculated 15 mg/dL (0-40) Non-HDL Cholesterol Calculated 123 mg/dL (0-129) HDL Cholesterol 76 mg/dL (40-60) Cholesterol/HDL Ratio 2.6 ASSESSMENT/PLAN ASSESSMENT/PLAN 1. Chest pain, atypical and most probably related to #2 2. Accelerated hypertension, POA. hydralazine recently added. now better controlled. 3. Hyperlipidemia; LDL 108 statin 4. YOGESH on CKD; renal following 5. GERD; PPI Recommendations ASA BP control; may increase Coreg to 25mg BID if BP remains elevated. Avoid nephrotoxic agents. Follow nephrology recs Check echo to assess LV systolic function/presence of WMA Given risk factors, will proceed with MPI to r/o ischemia. RALPH OSBORNE APRN Apr 18, 2018 09:44
[2018-04-18] MEDS: DOCUSATE SODIUM 100 MG CAPSULE. PO SCH (10:08)
[2018-04-18 11:11] VITALS: BP 175/70
[2018-04-18] MEDS ORDERED: REGADENOSON 0.4 MG/5 ML DISP.SYRIN. IV ONE (11:30)
[2018-04-18] MEDS: amLODIPine BESYLATE 10 MG TABLET PO SCH (14:03)
[2018-04-18] MEDS: CARVEDILOL 12.5 MG TABLET. PO SCH (14:03)
--- NOTE | 2018-04-18 14:42 | PDOC2 ---
CONSULT Date of Consult Date of Consult DATE: 04/18/18 TIME: 14:33 Reason for Consult Reason for Consult: Renal failure Identification/Chief Complaint Chief Complaint Rt arm and Chest pain, Now feeling fine Source Source: Chart review, Patient History of Present Illness Reason for Visit: 77-year-old -[place] female, known hypertensive on medications, known patient of Dr. Keller . She follows with me for CKD - seen last tejon or so. She is admitted with complains of right-sided chest pain, as pressure, right- sided arm involvement but no diaphoresis SOA, dizziness or presyncopal symptoms. NO identifiable precipitating or alleviating factors, She was taking Naproxen BID along with ARB (switched to Candesartan by PCP) - I decreased dose of ARB, and advised to stop Naproxen. She doesnt take lasix Her BP have been running very high in our office and at home- I added Hydralazine last visit . Pts PCP called me on Wednesday reporting High BP in clinic - asking my Opinion. Discussed to add clonidine as hydrlazine was just added. Pt reports that no new meds were given to her by her PCP She denies any Edema, No Urinary complaints . Her BP now in 150's(from 180-200) , today BB held for stress test Past Medical History Cardiovascular: HTN, Hyperlipidemia Pulmonary: No pertinent hx CENTRAL NERVOUS SYSTEM: Other (no pertinent hx) GI: GERD Heme/Onc: No pertinent hx Hepatobiliary: No pertinent hx Psych: No pertinent hx Musculoskeletal: Osteoarthritis Rheumatologic: No pertinent hx Infectious disease: No pertinent hx ENT: No pertinent hx Renal/: Chronic renal insuff Endocrine: No pertinent hx Dermatology: No pertinent hx Past Surgical History Past Surgical History: Cholecystectomy, Total knee replacement (bilateral), Tonsillectomy, Hysterectomy, Other (right breast lumpectomy ) Family History Family History: Coronary Artery Disease (brother ), High Cholestrol Social History No ALCOHOL: none Drugs: None Current Problem List Problem List Problems Medical Problems: (1) Chest pain Status: Acute Current Medications Current Medications Current Medications Aspirin (Children'S Aspirin) 243 mg 1X ONCE PO Last administered on at 14:51; Start 04/17/18 at 14:45; Stop 04/17/18 at 14:46; Status DC Nitroglycerin (Nitrostat) 0.4 mg PRN Q5MIN PRN SL CHEST PAIN Last administered on 04/17/18at 15:49; Start 04/17/18 at 15:30 Ondansetron HCl (Zofran) 4 mg PRN Q6HRS PRN IV NAUSEA/VOMITING; Start at 15:45 Calcium Carbonate/ Glycine (Tums) 500 mg PRN Q3HRS PRN PO UPSET STOMACH; Start 04/17/18 at 15:45 Zolpidem Tartrate (Ambien) 5 mg PRN QHS PRN PO INSOMNIA, MAY REPEAT IN 1HR; Start 04/17/18 at 15:45 Oxycodone HCl (Roxicodone) 5 mg PRN Q3HRS PRN PO SEVERE BREAKTHROUGH PAIN; Start 04/17/18 at 15:45 Morphine Sulfate (Morphine Sulfate) 2 mg PRN Q2HR PRN IV PAIN; Start 04/17/18 at 15:45 Acetaminophen (Tylenol) 650 mg PRN Q6HRS PRN PO Headaches, Temp > 101.5F; Start 04/17/18 at 15:45 Ibuprofen (Motrin) 400 mg PRN Q6HRS PRN PO MILD PAIN; Start 04/17/18 at 15:45 ; Status UNV Docusate Sodium (Colace) 100 mg BID PO Last administered on 04/18/18at 10:08; Start 04/17/18 at 21:00 Magnesium Hydroxide (Milk Of Magnesia) 2,400 mg PRN Q12HR PRN PO CONSTIPATION; Start 04/17/18 at 15:45; Stop 04/17/18 at 16:07; Status DC Lactulose (Lactulose) 20 gm PRN Q12HR PRN PO CONSTIPATION; Start 04/17/18 at 15:45 Bisacodyl (Dulcolax Supp) [address] CONSTIPATION; Start 04/17/18 at 15:45 Labetalol HCl (Normodyne Iv Push) 10 mg PRN Q2HR PRN IVP HYPERTENSION, SEE COMMENTS Last administered on 04/17/18at 22:06; Start 04/17/18 at 15:45 Aspirin (Ecotrin) 325 mg BID PO ; Start 04/17/18 at 21:00; Stop 04/18/18 at 07 :26; Status DC Carvedilol (Coreg) 12.5 mg BIDWMEALS PO Last administered on 04/18/18at 14:03; Start 04/17/18 at 17:00 Ferrous Sulfate (Feosol) 325 mg BID PO ; Start 04/17/18 at 21:00 Non-Formulary Medication (Nifedipine (Nifedipine Er)) 90 mg DAILY PO ; Start at 09:00; Status UNV Pantoprazole Sodium (Protonix) 40 mg DAILYAC PO Last administered on at 10:08; Start 04/18/18 at 07:30 Amlodipine Besylate (Norvasc) 10 mg DAILY PO Last administered on 04/18/18at 14 :03; Start 04/17/18 at 16:00 Acetaminophen/ Hydrocodone Bitart (Lortab 5/325) 1 tab PRN Q4HRS PRN PO PAIN MODERATE; Start 04/17/18 at 15:45 Hydralazine HCl (Apresoline) 25 mg TID PO Last administered on 04/18/18at 14:06 ; Start 04/17/18 at 21:00 Aspirin (Children'S Aspirin) 81 mg DAILYWBKFT PO Last administered on at 10:07; Start 04/18/18 at 08:00 Regadenoson (Lexiscan) 0.4 mg 1X ONCE IV Last administered on 04/18/18at 12:59 ; Start 04/18/18 at 11:30; Stop 04/18/18 at 11:31; Status DC Active Scripts Active Reported Aspirin 81 Mg Tab.chew 1 Tab PO DAILY Docusate Sodium 100 Mg Capsule 1 Cap PO DAILY Ferrous Sulfate 325 Mg Tablet 325 Mg PO last dose this am next dose tonight with supper Carvedilol 12.5 Mg Tablet 1 Tab PO BID last dose this am next dose this evening with supper Carvedilol 25 Mg Tablet 1 Tab PO BID Allergies Allergies: Coded Allergies: No Known Drug Allergies (Unverified , 02/09/17) ROS Review of System As per HPI Physical Exam Physical Exam General: No acute distress HEENT: Mucous membr. moist/pink Lungs: Clear to auscultation,Non labored Heart: Regular rate, Normal S1, Normal S2, No murmurs Abdomen: Soft, No tenderness Extremities: No edema, Skin: No rash Neuro: AXOx3 - No Pelayo Vital Signs Vital Signs Date Time Temp Pulse Resp B/P (MAP) Pulse Ox O2 Delivery O2 Flow Rate FiO2 04/18/18 14:06 64 175/70 04/18/18 11:11 98.5 16 100 Room Air 98.5 Assessment & Plan YOGESH on CKD Pt was seen by me in my office last week Prior to her visit routine labs were done found to have YOGESH Cr 3.7ish , advised to dc Naproxen(she was taking BID for 2-3 weeks) Decrease dose of ARB, No improvent in renal function based on labs from today Monitor , follow up with me as OP as scheduled HTN- Very high in past better since I added Hydrlazine last week Clinically euvolemic CKD stage 3 Right-sided chest chest pain with right arm involvement Stress test today DC as per primary , ok to dc from renal standpoint Labs Labs Laboratory Tests Test 04/17/18 14:39 04/18/18 03:40 White Blood Count 4.6 x10^3/uL (4.0-11.0) Red Blood Count 3.60 x10^6/uL (3.50-5.40) Hemoglobin 10.6 g/dL (12.0-15.5) Hematocrit 31.0 % (36.0-47.0) Mean Corpuscular Volume 86 fL (79-100) Mean Corpuscular Hemoglobin 29 pg (25-35) Mean Corpuscular Hemoglobin Concent 34 g/dL (31-37) Red Cell Distribution Width 14.2 % (11.5-14.5) Platelet Count 222 x10^3/uL (140-400) Neutrophils (%) (Auto) 55 % (31-73) Lymphocytes (%) (Auto) 31 % (24-48) Monocytes (%) (Auto) 7 % (0-9) Eosinophils (%) (Auto) 5 % (0-3) Basophils (%) (Auto) 2 % (0-3) Neutrophils # (Auto) 2.5 x10^3uL (1.8-7.7) Lymphocytes # (Auto) 1.4 x10^3/uL (1.0-4.8) Monocytes # (Auto) 0.3 x10^3/uL (0.0-1.1) Eosinophils # (Auto) 0.2 x10^3/uL (0.0-0.7) Basophils # (Auto) 0.1 x10^3/uL (0.0-0.2) Sodium Level 139 mmol/L (136-145) 140 mmol/L (136-145) Potassium Level 3.8 mmol/L (3.5-5.1) 3.7 mmol/L (3.5-5.1) Chloride Level 104 mmol/L (98-107) 107 mmol/L (98-107) Carbon Dioxide Level 23 mmol/L (21-32) 22 mmol/L (21-32) Anion Gap 12 (6-14) 11 (6-14) Blood Urea Nitrogen 46 mg/dL (7-20) 51 mg/dL (7-20) Creatinine 3.8 mg/dL (0.6-1.0) 3.7 mg/dL (0.6-1.0) Estimated GFR (Cockcroft-Gault) 14.0 14.4 BUN/Creatinine Ratio 12 (6-20) Glucose Level 137 mg/dL (70-99) 98 mg/dL (70-99) Calcium Level 8.9 mg/dL (8.5-10.1) 8.5 mg/dL (8.5-10.1) Magnesium Level 2.1 mg/dL (1.8-2.4) Total Bilirubin 0.3 mg/dL (0.2-1.0) Aspartate Amino Transf (AST/SGOT) 23 U/L (15-37) Alanine Aminotransferase (ALT/SGPT) 26 U/L (14-59) Alkaline Phosphatase 146 U/L (46-116) Troponin I Quantitative 0.040 ng/mL (0.000-0.055) 0.042 ng/mL (0.000-0.055) Total Protein 7.0 g/dL (6.4-8.2) Albumin 3.3 g/dL (3.4-5.0) Albumin/Globulin Ratio 0.9 (1.0-1.7) Triglycerides Level 77 mg/dL (0-150) Cholesterol Level 199 mg/dL (0-200) LDL Cholesterol, Calculated 108 mg/dL (0-100) VLDL Cholesterol, Calculated 15 mg/dL (0-40) Non-HDL Cholesterol Calculated 123 mg/dL (0-129) HDL Cholesterol 76 mg/dL (40-60) Cholesterol/HDL Ratio 2.6 Laboratory Tests Test 04/17/18 14:39 04/18/18 03:40 White Blood Count 4.6 x10^3/uL (4.0-11.0) Red Blood Count 3.60 x10^6/uL (3.50-5.40) Hemoglobin 10.6 g/dL (12.0-15.5) Hematocrit 31.0 % (36.0-47.0) Mean Corpuscular Volume 86 fL (79-100) Mean Corpuscular Hemoglobin 29 pg (25-35) Mean Corpuscular Hemoglobin Concent 34 g/dL (31-37) Red Cell Distribution Width 14.2 % (11.5-14.5) Platelet Count 222 x10^3/uL (140-400) Neutrophils (%) (Auto) 55 % (31-73) Lymphocytes (%) (Auto) 31 % (24-48) Monocytes (%) (Auto) 7 % (0-9) Eosinophils (%) (Auto) 5 % (0-3) Basophils (%) (Auto) 2 % (0-3) Neutrophils # (Auto) 2.5 x10^3uL (1.8-7.7) Lymphocytes # (Auto) 1.4 x10^3/uL (1.0-4.8) Monocytes # (Auto) 0.3 x10^3/uL (0.0-1.1) Eosinophils # (Auto) 0.2 x10^3/uL (0.0-0.7) Basophils # (Auto) 0.1 x10^3/uL (0.0-0.2) Sodium Level 139 mmol/L (136-145) 140 mmol/L (136-145) Potassium Level 3.8 mmol/L (3.5-5.1) 3.7 mmol/L (3.5-5.1) Chloride Level 104 mmol/L (98-107) 107 mmol/L (98-107) Carbon Dioxide Level 23 mmol/L (21-32) 22 mmol/L (21-32) Anion Gap 12 (6-14) 11 (6-14) Blood Urea Nitrogen 46 mg/dL (7-20) 51 mg/dL (7-20) Creatinine 3.8 mg/dL (0.6-1.0) 3.7 mg/dL (0.6-1.0) Estimated GFR (Cockcroft-Gault) 14.0 14.4 BUN/Creatinine Ratio 12 (6-20) Glucose Level 137 mg/dL (70-99) 98 mg/dL (70-99) Calcium Level 8.9 mg/dL (8.5-10.1) 8.5 mg/dL (8.5-10.1) Magnesium Level 2.1 mg/dL (1.8-2.4) Total Bilirubin 0.3 mg/dL (0.2-1.0) Aspartate Amino Transf (AST/SGOT) 23 U/L (15-37) Alanine Aminotransferase (ALT/SGPT) 26 U/L (14-59) Alkaline Phosphatase 146 U/L (46-116) Troponin I Quantitative 0.040 ng/mL (0.000-0.055) 0.042 ng/mL (0.000-0.055) Total Protein 7.0 g/dL (6.4-8.2) Albumin 3.3 g/dL (3.4-5.0) Albumin/Globulin Ratio 0.9 (1.0-1.7) Triglycerides Level 77 mg/dL (0-150) Cholesterol Level 199 mg/dL (0-200) LDL Cholesterol, Calculated 108 mg/dL (0-100) VLDL Cholesterol, Calculated 15 mg/dL (0-40) Non-HDL Cholesterol Calculated 123 mg/dL (0-129) HDL Cholesterol 76 mg/dL (40-60) Cholesterol/HDL Ratio 2.6 Review All relevant outside records, renal labs, imaging studies, telemetry/EKG's were reviewed. Images Images Ultrasound was used to evaluate the kidneys and bladder. Right kidney was 10.1 cm in length. There is no hydronephrosis. There is a 4.7 cm cyst at the upper pole the right kidney. Right kidney is echogenic suggesting chronic renal disease. Bladder was mildly distended without a focal lesion. Left kidney was 10.1 cm in length. Left kidney is also echogenic suggesting chronic renal disease. There is a 3.3 cm cyst at the upper left kidney. IMPRESSION: 1. Kidneys within normal limits in size. 2. Increased cortical echogenicity of the kidneys suggesting chronic renal disease. 3. Bilateral renal cysts. JIL LOBATO MD Apr 18, 2018 14:42
[2018-04-18 15:02] VITALS: BP 188/70
--- NOTE | 2018-04-18 15:15 | RAD ---
MR#: [id number] Date of Study: 04/18/2018 Ordering Physician: RALPH OSBORNE, Referring Physician: LINWOOD GONZALEZ Tech: OTTONIEL Villafuerte APPROVED REPORT Test Type: Pharmacological Stress Nurse/Tech: Xochitl Rudolph RN Test Indications: Chest Pain Cardiac History: Hypertension,family history Medications: See Electronic Medical Record Medical History: See Electronic Medical Record Resting ECG: SR Resting Heart Rate: 66 bpm Resting Blood Pressure: 208/81mmHg Pretest Chest Pain: No chest pain Nurse/Tech Notes S1,S2 and lungs are clear to auscultation. Consent: The procedure was explained to the patient in lay terms. Informed consent was witnessed. Meliton eout was entered into [employer]. History and Stress Test performed by BRADLEY Rivero, CASSANDRA (R) (N) Pharm. Details Pharmacologic stress testing was performed using 0.4mg per 5ml of regadenoson given intravenously ove r 7-10 seconds. Stress Symptoms Headache, nausea POST EXERCISE Reason for Termination: Infusion complete Target HR: No Max HR: 108 bpm Max Blood Pressure: 178/72mmHg Blood Pressure response to exercise: Normal blood pressure response during stress. Heart Rate response to exercise: WNL Chest Pain: No. Arrhythmia: No. INTERPRETATION Stress EKG Conclusion: The resting EKG shows a sinus rhythm with slight nonspecific ST segment change s. The stress EKG shows no significant changes from baseline. No EKG evidence of stress-induced ischemia. Imaging Protocol IMAGE PROTOCOL: Rest Tc-99m/stress Tc-99m 1 day Rest: Stress: Viability: Radiopharm.Tc99m [id number] Sestamibi [id number] 32mCi Duration 17min. 15min. Img Date 04/18/2018 04/18/2018 Inj-Img [id number]. 60min. Rest Admin Site:IV - Left AntecubitalAdministrator:BRADLEY Rivero, CASSANDRA (R)(N) Stress Admin Site: IV - Left AntecubitalAdministrator: BRADLEY Rivero ARRT (R)(N) STRESS DATA End Diast. Vol.104.0mlEnd Syst. Vol.48.0ml Myocardial Cgtf414.0gEject. Dpahgivf81.0% Stress Scores Regional WT1.00Summed WT17.00 Regional WM0.00Summed WM9.00 LV Perfusion The stress scans showed no significant defects. The rest scans showed no significant defects. Nuclear imaging shows no reversible ischemia or infarct. Wall Motion Normal left ventricular systolic function with an ejection fraction of 54%. LV Perf. Quant 17 Seg. SSS4.00 17 Seg. SRS4.00 17 Seg. SDS0.00 Stress Defect Extent (% LAD)0.00Rest Defect Extent (% LAD)0.00Rev. Defect Extent (% LAD)0.00 Stress Defect Extent (% LCX) 18.80Rest Defect Extent (% LCX)35.00Rev. Defect Extent (% LCX)0.00 Stress Defect Extent (% RCA)0.00Rest Defect Extent (% RCA)0.00Rev. Defect Extent (% RCA)0.00 Stress Defect Extent (% BECKY)4.10Rest Defect Extent (% BECKY)8.30Rev. Defect Extent (% BECKY)0.00 Conclusion 1. No EKG evidence of stressed induced ischemia. 2. Nuclear imaging shows no reversible ischemia or infarct. 3. Normal left ventricular systolic function with an ejection fraction of 54%. 4. Moderately low risk Lexiscan nuclear stress test. Signed by : Jonnathan Haynes MD Electronically Approved : 04/18/2018 15:15:15
--- NOTE | 2018-04-18 16:04 | PDOC ---
PROGRESS NOTES Chief Complaint Chief Complaint Accelerated hypertension POA Right-sided chest chest pain with right arm involvement Dyslipidemia on statin NOn smoker YOGESH possibly on CKD Vitals Vitals Vital Signs Date Time Temp Pulse Resp B/P (MAP) Pulse Ox O2 Delivery O2 Flow Rate FiO2 04/18/18 15:02 97.3 84 16 188/70 (109) 99 Room Air 97.3 Physical Exam General: Alert, Oriented X3, Cooperative, No acute distress Heart: Regular rate, Normal S1, Normal S2, No murmurs Lungs: Clear Abdomen: Soft, No tenderness Extremities: No edema, Normal pulses Skin: No breakdown, No significant lesion Labs LABS Laboratory Tests Test 04/18/18 03:40 Sodium Level 140 mmol/L (136-145) Potassium Level 3.7 mmol/L (3.5-5.1) Chloride Level 107 mmol/L (98-107) Carbon Dioxide Level 22 mmol/L (21-32) Anion Gap 11 (6-14) Blood Urea Nitrogen 51 mg/dL (7-20) Creatinine 3.7 mg/dL (0.6-1.0) Estimated GFR (Cockcroft-Gault) 14.4 Glucose Level 98 mg/dL (70-99) Calcium Level 8.5 mg/dL (8.5-10.1) Troponin I Quantitative 0.042 ng/mL (0.000-0.055) Assessment and Plan Assessmemt and Plan Problems Medical Problems: (1) Chest pain Status: Acute Comment Review of Relevant I have reviewed the following items homer (where applicable) has been applied. Labs Laboratory Tests Test 04/17/18 14:39 04/18/18 03:40 White Blood Count 4.6 x10^3/uL (4.0-11.0) Red Blood Count 3.60 x10^6/uL (3.50-5.40) Hemoglobin 10.6 g/dL (12.0-15.5) Hematocrit 31.0 % (36.0-47.0) Mean Corpuscular Volume 86 fL (79-100) Mean Corpuscular Hemoglobin 29 pg (25-35) Mean Corpuscular Hemoglobin Concent 34 g/dL (31-37) Red Cell Distribution Width 14.2 % (11.5-14.5) Platelet Count 222 x10^3/uL (140-400) Neutrophils (%) (Auto) 55 % (31-73) Lymphocytes (%) (Auto) 31 % (24-48) Monocytes (%) (Auto) 7 % (0-9) Eosinophils (%) (Auto) 5 % (0-3) Basophils (%) (Auto) 2 % (0-3) Neutrophils # (Auto) 2.5 x10^3uL (1.8-7.7) Lymphocytes # (Auto) 1.4 x10^3/uL (1.0-4.8) Monocytes # (Auto) 0.3 x10^3/uL (0.0-1.1) Eosinophils # (Auto) 0.2 x10^3/uL (0.0-0.7) Basophils # (Auto) 0.1 x10^3/uL (0.0-0.2) Sodium Level 139 mmol/L (136-145) 140 mmol/L (136-145) Potassium Level 3.8 mmol/L (3.5-5.1) 3.7 mmol/L (3.5-5.1) Chloride Level 104 mmol/L (98-107) 107 mmol/L (98-107) Carbon Dioxide Level 23 mmol/L (21-32) 22 mmol/L (21-32) Anion Gap 12 (6-14) 11 (6-14) Blood Urea Nitrogen 46 mg/dL (7-20) 51 mg/dL (7-20) Creatinine 3.8 mg/dL (0.6-1.0) 3.7 mg/dL (0.6-1.0) Estimated GFR (Cockcroft-Gault) 14.0 14.4 BUN/Creatinine Ratio 12 (6-20) Glucose Level 137 mg/dL (70-99) 98 mg/dL (70-99) Calcium Level 8.9 mg/dL (8.5-10.1) 8.5 mg/dL (8.5-10.1) Magnesium Level 2.1 mg/dL (1.8-2.4) Total Bilirubin 0.3 mg/dL (0.2-1.0) Aspartate Amino Transf (AST/SGOT) 23 U/L (15-37) Alanine Aminotransferase (ALT/SGPT) 26 U/L (14-59) Alkaline Phosphatase 146 U/L (46-116) Troponin I Quantitative 0.040 ng/mL (0.000-0.055) 0.042 ng/mL (0.000-0.055) Total Protein 7.0 g/dL (6.4-8.2) Albumin 3.3 g/dL (3.4-5.0) Albumin/Globulin Ratio 0.9 (1.0-1.7) Triglycerides Level 77 mg/dL (0-150) Cholesterol Level 199 mg/dL (0-200) LDL Cholesterol, Calculated 108 mg/dL (0-100) VLDL Cholesterol, Calculated 15 mg/dL (0-40) Non-HDL Cholesterol Calculated 123 mg/dL (0-129) HDL Cholesterol 76 mg/dL (40-60) Cholesterol/HDL Ratio 2.6 Laboratory Tests Test 04/18/18 03:40 Sodium Level 140 mmol/L (136-145) Potassium Level 3.7 mmol/L (3.5-5.1) Chloride Level 107 mmol/L (98-107) Carbon Dioxide Level 22 mmol/L (21-32) Anion Gap 11 (6-14) Blood Urea Nitrogen 51 mg/dL (7-20) Creatinine 3.7 mg/dL (0.6-1.0) Estimated GFR (Cockcroft-Gault) 14.4 Glucose Level 98 mg/dL (70-99) Calcium Level 8.5 mg/dL (8.5-10.1) Troponin I Quantitative 0.042 ng/mL (0.000-0.055) Medications Current Medications Aspirin (Children'S Aspirin) 243 mg 1X ONCE PO Last administered on at 14:51; Start 04/17/18 at 14:45; Stop 04/17/18 at 14:46; Status DC Nitroglycerin (Nitrostat) 0.4 mg PRN Q5MIN PRN SL CHEST PAIN Last administered on 04/17/18at 15:49; Start 04/17/18 at 15:30 Ondansetron HCl (Zofran) 4 mg PRN Q6HRS PRN IV NAUSEA/VOMITING; Start at 15:45 Calcium Carbonate/ Glycine (Tums) 500 mg PRN Q3HRS PRN PO UPSET STOMACH; Start 04/17/18 at 15:45 Zolpidem Tartrate (Ambien) 5 mg PRN QHS PRN PO INSOMNIA, MAY REPEAT IN 1HR; Start 04/17/18 at 15:45 Oxycodone HCl (Roxicodone) 5 mg PRN Q3HRS PRN PO SEVERE BREAKTHROUGH PAIN; Start 04/17/18 at 15:45 Morphine Sulfate (Morphine Sulfate) 2 mg PRN Q2HR PRN IV PAIN; Start 04/17/18 at 15:45 Acetaminophen (Tylenol) 650 mg PRN Q6HRS PRN PO Headaches, Temp > 101.5F; Start 04/17/18 at 15:45 Ibuprofen (Motrin) 400 mg PRN Q6HRS PRN PO MILD PAIN; Start 04/17/18 at 15:45 ; Status UNV Docusate Sodium (Colace) 100 mg BID PO Last administered on 04/18/18at 10:08; Start 04/17/18 at 21:00 Magnesium Hydroxide (Milk Of Magnesia) 2,400 mg PRN Q12HR PRN PO CONSTIPATION; Start 04/17/18 at 15:45; Stop 04/17/18 at 16:07; Status DC Lactulose (Lactulose) 20 gm PRN Q12HR PRN PO CONSTIPATION; Start 04/17/18 at 15:45 Bisacodyl (Dulcolax Supp) 10 mg PRN DAILY PRN ND CONSTIPATION; Start 04/17/18 at 15:45 Labetalol HCl (Normodyne Iv Push) 10 mg PRN Q2HR PRN IVP HYPERTENSION, SEE COMMENTS Last administered on 04/17/18at 22:06; Start 04/17/18 at 15:45 Aspirin (Ecotrin) 325 mg BID PO ; Start 04/17/18 at 21:00; Stop 04/18/18 at 07 :26; Status DC Carvedilol (Coreg) 12.5 mg BIDWMEALS PO Last administered on 04/18/18at 14:03; Start 04/17/18 at 17:00 Ferrous Sulfate (Feosol) 325 mg BID PO ; Start 04/17/18 at 21:00 Non-Formulary Medication (Nifedipine (Nifedipine Er)) 90 mg DAILY PO ; Start at 09:00; Status UNV Pantoprazole Sodium (Protonix) 40 mg DAILYAC PO Last administered on at 10:08; Start 04/18/18 at 07:30 Amlodipine Besylate (Norvasc) 10 mg DAILY PO Last administered on 04/18/18at 14 :03; Start 04/17/18 at 16:00 Acetaminophen/ Hydrocodone Bitart (Lortab 5/325) 1 tab PRN Q4HRS PRN PO PAIN MODERATE; Start 04/17/18 at 15:45 Hydralazine HCl (Apresoline) 25 mg TID PO Last administered on 04/18/18at 14:06 ; Start 04/17/18 at 21:00 Aspirin (Children'S Aspirin) 81 mg DAILYWBKFT PO Last administered on at 10:07; Start 04/18/18 at 08:00 Regadenoson (Lexiscan) 0.4 mg 1X ONCE IV Last administered on 04/18/18at 12:59 ; Start 04/18/18 at 11:30; Stop 04/18/18 at 11:31; Status DC Active Scripts Active Reported Aspirin 81 Mg Tab.chew 1 Tab PO DAILY Docusate Sodium 100 Mg Capsule 1 Cap PO DAILY Ferrous Sulfate 325 Mg Tablet 325 Mg PO last dose this am next dose tonight with supper Carvedilol 12.5 Mg Tablet 1 Tab PO BID last dose this am next dose this evening with supper Carvedilol 25 Mg Tablet 1 Tab PO BID Vitals/I & O Vital Sign - Last 24 Hours 04/17/18 04/17/18 04/17/18 04/17/18 16:22 16:30 16:40 18:45 Temp 97.5 97.5 Pulse 76 75 75 Resp 16 B/P (MAP) 211/95 (133) 199/82 (121) 199/82 Pulse Ox 99 99 O2 Delivery Room Air Room Air Room Air 04/17/18 04/17/18 04/17/18 04/17/18 18:46 19:00 20:03 22:02 Temp 98.3 98.3 Pulse 75 75 75 Resp 17 B/P (MAP) 199/82 182/89 (120) 182/89 Pulse Ox 100 O2 Delivery Room Air Room Air 04/17/18 04/17/18 04/18/18 04/18/18 22:06 23:00 03:00 07:19 Temp 98.1 98.1 98.6 98.1 98.1 98.6 Pulse 75 80 77 80 Resp 16 16 16 B/P (MAP) 182/89 148/71 (96) 132/68 (89) 158/63 (94) Pulse Ox 97 100 96 O2 Delivery Room Air Room Air Room Air 04/18/18 04/18/18 04/18/18 04/18/18 11:11 14:03 14:03 14:06 Temp 98.5 98.5 Pulse 64 64 64 64 Resp 16 B/P (MAP) 175/70 (105) 175/70 175/70 175/70 Pulse Ox 100 O2 Delivery Room Air 04/18/18 15:02 Temp 97.3 97.3 Pulse 84 Resp 16 B/P (MAP) 188/70 (109) Pulse Ox 99 O2 Delivery Room Air Intake and Output 04/17/18 04/17/18 04/18/18 15:00 23:00 07:00 Intake Total 240 ml 360 ml 0 ml Balance 240 ml 360 ml 0 ml WENDY CRAWLEY MD Apr 18, 2018 16:04
--- NOTE | 2018-04-18 16:06 | PDOC3 ---
Discharge Summary Visit Information Date of Admission: Apr 17, 2018 Date of Discharge: Apr 18, 2018 Admitting Diagnosis: chest pain Final Diagnosis Accelerated hypertension POA Right-sided chest chest pain with right arm involvement Dyslipidemia on statin YOGESH on CKD Problems Medical Problems: (1) Chest pain Status: Acute Brief Hospital Course Allergies Allergies Coded Allergies Type Severity Reaction Last Updated Verified No Known Drug Allergies 02/09/17 No Vital Signs Vital Signs Date Time Temp Pulse Resp B/P (MAP) Pulse Ox O2 Delivery O2 Flow Rate FiO2 04/18/18 15:02 97.3 84 16 188/70 (109) 99 Room Air 97.3 Lab Results Laboratory Tests Test 04/17/18 14:39 04/18/18 03:40 White Blood Count 4.6 x10^3/uL (4.0-11.0) Red Blood Count 3.60 x10^6/uL (3.50-5.40) Hemoglobin 10.6 g/dL (12.0-15.5) Hematocrit 31.0 % (36.0-47.0) Mean Corpuscular Volume 86 fL (79-100) Mean Corpuscular Hemoglobin 29 pg (25-35) Mean Corpuscular Hemoglobin Concent 34 g/dL (31-37) Red Cell Distribution Width 14.2 % (11.5-14.5) Platelet Count 222 x10^3/uL (140-400) Neutrophils (%) (Auto) 55 % (31-73) Lymphocytes (%) (Auto) 31 % (24-48) Monocytes (%) (Auto) 7 % (0-9) Eosinophils (%) (Auto) 5 % (0-3) Basophils (%) (Auto) 2 % (0-3) Neutrophils # (Auto) 2.5 x10^3uL (1.8-7.7) Lymphocytes # (Auto) 1.4 x10^3/uL (1.0-4.8) Monocytes # (Auto) 0.3 x10^3/uL (0.0-1.1) Eosinophils # (Auto) 0.2 x10^3/uL (0.0-0.7) Basophils # (Auto) 0.1 x10^3/uL (0.0-0.2) Sodium Level 139 mmol/L (136-145) 140 mmol/L (136-145) Potassium Level 3.8 mmol/L (3.5-5.1) 3.7 mmol/L (3.5-5.1) Chloride Level 104 mmol/L (98-107) 107 mmol/L (98-107) Carbon Dioxide Level 23 mmol/L (21-32) 22 mmol/L (21-32) Anion Gap 12 (6-14) 11 (6-14) Blood Urea Nitrogen 46 mg/dL (7-20) 51 mg/dL (7-20) Creatinine 3.8 mg/dL (0.6-1.0) 3.7 mg/dL (0.6-1.0) Estimated GFR (Cockcroft-Gault) 14.0 14.4 BUN/Creatinine Ratio 12 (6-20) Glucose Level 137 mg/dL (70-99) 98 mg/dL (70-99) Calcium Level 8.9 mg/dL (8.5-10.1) 8.5 mg/dL (8.5-10.1) Magnesium Level 2.1 mg/dL (1.8-2.4) Total Bilirubin 0.3 mg/dL (0.2-1.0) Aspartate Amino Transf (AST/SGOT) 23 U/L (15-37) Alanine Aminotransferase (ALT/SGPT) 26 U/L (14-59) Alkaline Phosphatase 146 U/L (46-116) Troponin I Quantitative 0.040 ng/mL (0.000-0.055) 0.042 ng/mL (0.000-0.055) Total Protein 7.0 g/dL (6.4-8.2) Albumin 3.3 g/dL (3.4-5.0) Albumin/Globulin Ratio 0.9 (1.0-1.7) Triglycerides Level 77 mg/dL (0-150) Cholesterol Level 199 mg/dL (0-200) LDL Cholesterol, Calculated 108 mg/dL (0-100) VLDL Cholesterol, Calculated 15 mg/dL (0-40) Non-HDL Cholesterol Calculated 123 mg/dL (0-129) HDL Cholesterol 76 mg/dL (40-60) Cholesterol/HDL Ratio 2.6 Laboratory Tests Test 04/18/18 03:40 Sodium Level 140 mmol/L (136-145) Potassium Level 3.7 mmol/L (3.5-5.1) Chloride Level 107 mmol/L (98-107) Carbon Dioxide Level 22 mmol/L (21-32) Anion Gap 11 (6-14) Blood Urea Nitrogen 51 mg/dL (7-20) Creatinine 3.7 mg/dL (0.6-1.0) Estimated GFR (Cockcroft-Gault) 14.4 Glucose Level 98 mg/dL (70-99) Calcium Level 8.5 mg/dL (8.5-10.1) Troponin I Quantitative 0.042 ng/mL (0.000-0.055) Brief Hospital Course Ms. May is a 77 old female, admit with chest pain, r/o ACS, stress test neg, Cv and renal consult, stable from prior, will followup outpatient Discharge Information Condition at Discharge: Improved Follow Up: Weeks Disposition/Orders: D/C to Home Scheduled Aspirin (Aspirin) 81 Mg Tab.chew, 1 TAB PO DAILY, #30 Ref 3 (Reported) Entered as Reported by: EARL JACKSON on 04/17/182003 Last Taken: 81mg PO daily on 04/17/18 Last Action: New Order on 2003 by EARL JACKSON Carvedilol (Carvedilol) 12.5 Mg Tablet, 1 TAB PO BID for heart rhythm, #180 Ref 3 (Reported) last dose this am next dose this evening with supper Entered as Reported by: CHAUNCEY DAY on 01/15/17 0918 Last Action: Continued on 04/17/18 1542 by CHOCO SMITH Carvedilol (Carvedilol) 25 Mg Tablet, 1 TAB PO BID, #180 Ref 1 (Reported) Entered as Reported by: EARL JACKSON on 04/17/182003 Last Taken: 25mg PO BID on 04/16/18 0800 Last Action: New Order on 2003 by EARL JACKSON Docusate Sodium (Docusate Sodium) 100 Mg Capsule, 1 CAP PO DAILY, #30 (Reported) Entered as Reported by: EARL JACKSON on 04/17/182003 Last Taken: Unknown Dose on 04/16/18 Last Action: New Order on 04/17/182003 by EARL JACKSON Miscellaneous Medications Ferrous Sulfate (Ferrous Sulfate) 325 Mg Tablet, 325 MG PO for supplement, ( Reported) last dose this am next dose tonight with supper Entered as Reported by: CHAUNCEY DAY on 01/15/17917 Last Action: HELD on 04/17/18 1542 by CHOCO SMITH Discontinued Medications Aspirin (Aspirin Ec) 325 Mg Tablet.dr, 325 MG PO BID for blood thinner for 30 Days, #60 (Reported) last dose this am next dose tonight Entered as Reported by: TRISHA MCMAHAN on 02/12/17 1013 Last Action: Discontinued on 04/17/182003 by EARL JACKSON Celecoxib (Celebrex) 200 Mg Capsule, 1 CAP PO DAILY for antiinflammatory, #30 Ref 2 (Reported) last dose this am next dose tomorrow morning Entered as Reported by: TRISHA MCMAHAN on 02/12/17 1013 Last Action: Discontinued on 04/17/182003 by EARL JACKSON Ferrous Sulfate (Ferrous Sulfate) 325 Mg Tablet, 1 TAB PO BID for supplement, # 60 Ref 3 (Reported) last dose this am next dose tonight with supper Entered as Reported by: TRISHA MCMAHAN on 02/12/17 1013 Last Action: Discontinued on 04/17/182003 by EARL JACKSON Nifedipine (Nifedipine Er) 60 Mg Tablet.er, 90 MG PO DAILY, (Reported) Meds not given this hospital admission. May resume home medications as approved by Physician. please check blood pressure prior to resuming; please make sure blood pressure is greater than 140/78 add 1 blood pressure pill one at a time Entered as Reported by: ARIEL IZAGUIRRE on 02/28/15 1501 Last Action: Discontinued on 04/17/182003 by EARL JACKSON Omeprazole (Omeprazole) 40 Mg Capsule.dr, 40 MG PO DAILY for stomach acid, ( Reported) last dose this am next dose this am Entered as Reported by: ARIEL IZAGUIRRE on 02/28/151502 Last Action: Discontinued on 04/17/182003 by EARL JACKSON Triamterene/Hydrochlorothiazid (Triamterene-Hctz 75-50 Mg Tab) 1 Each Tablet, 1 TAB PO DAILY for blood pressure, (Reported) Meds not given this hospital admission. May resume home medications as approved by Physician. please check blood pressure prior to taking; pleae be sure blood pressure is greater than 140/78. please add 1 blood pressure pill at a time Entered as Reported by: ARIEL IZAGUIRRE on 02/28/15 1502 Last Action: Discontinued on 04/17/182003 by EARL JACKSON Valsartan (Diovan) 160 Mg Tablet, 160 MG PO DAILY for blood pressure, (Reported) Meds not given this hospital admission. May resume home medications as approved by Physician. please check blood pressure prior to taking Entered as Reported by: CHAUNCEY DAY on 01/15/17 0918 Last Action: Discontinued on 04/17/182003 by EARL JACKSON Patient Instructions Patient Instructions face to face eval, discussion, pt felt well, wanted to DC home > 30 minutes WENDY CRAWLEY MD Apr 18, 2018 16:06
== END 2018-04-18 17:30 | disposition home or self-care (01) | DRG 682 ==
LOC: ER 14:29 → 5 SOUTH 15:30
PROVIDERS: ADMIT Internal Medicine; ATTEND Internal Medicine
DX: I12.9 Hypertensive chronic kidney disease with stage 1 through stage 4 chronic kidney disease, or unspecified chronic kidney disease (principal); N17.0 Acute kidney failure with tubular necrosis; R07.89 Other chest pain; Z83.3 Family history of diabetes mellitus; E78.5 Hyperlipidemia, unspecified; K21.9 Gastro-esophageal reflux disease without esophagitis; N28.1 Cyst of kidney, acquired; M19.90 Unspecified osteoarthritis, unspecified site; N18.3 Chronic kidney disease, stage 3 (moderate); Z96.653 Presence of artificial knee joint, bilateral; Z82.49 Family history of ischemic heart disease and other diseases of the circulatory system; Z90.710 Acquired absence of both cervix and uterus; Z79.899 Other long term (current) drug therapy
CPT/HCPCS: 36415; 71045; 76770; 78452; 80048; 80053; 80061; 83735; 84484; 85025; 93005; 93017; 96374; 96375; 96376; A9500; J2785; J3490; 99285-25